=== PATIENT | female | born 1975 | race Caucasian/White ===

== ENCOUNTER → 2017-11-28 16:31 | Outpatient (CLI) | payer BC, SELFPAY ==
[2017-11-28 16:57] LABS: Basophils # 0.1 K/mm3 (0-0.2); Basophils % 0.8 % (0.1-2.0); Eosinophils # 0.2 K/mm3 (0.0-0.4); Eosinophils % 2.9 % (0.1-12.0); Hematocrit 37.9 % (37.0-47.0); Hemoglobin 12.7 g/dL (12.2-16.2); Lymphocytes # 3.2 K/mm3 (0.7-4.5); Lymphocytes % 40.2 K/mm3 (10-50); Mean Corpuscular HGB Conc 33.5 g/dL (31.8-35.4); Mean Corpuscular Hemoglobin 30.1 pg (27.0-31.2); Mean Corpuscular Volume 89.9 fl (81-99); Mean Platelet Volume 9.1 fl (7.4-10.4); Monocytes # 0.7 K/mm3 (0.1-1.0); Monocytes % 8.7 % (1.7-9.3); Neutrophils # 3.7 K/mm3 (1.8-7.8); Neutrophils % 47.3 % (37.0-80.0); Platelet Count 219 K/mm3 (142-424); Red Blood Count 4.22 M/mm3 (4.20-5.40); Red Cell Distribution Width 13.3 % (11.5-17.5); White Blood Count 7.9 K/mm3 (4.8-10.8)
[2017-11-28 19:31] LABS: Alanine Aminotransferase 32 U/L (12-78); Albumin Level 3.6 gm/dL (3.4-5.0); Albumin/Globulin Ratio 1.2 (1.1-1.8); Alkaline Phosphatase 78 U/L (46-116); Anion Gap 11.8 mEq/L (5-15); Aspartate Amino Transferase 20 U/L (15-37); Bilirubin,Total 0.2 mg/dL (0.2-1.0); Blood Urea Nitrogen 10 mg/dL (7-18); Calcium 8.5 mg/dL (8.5-10.1); Carbon Dioxide 27 mmol/L (21.0-32.0); Chloride 104 mmol/L (98-107); Creatinine,Serum 0.71 mg/dL (0.55-1.02); Estimated Glomerular Filt Rate 89 ml/min (>60); GFR (African American) 108 ML/MIN (>60); Glucose 87 mg/dL (74-106); Potassium 3.8 mmoL/L (3.5-5.1); Sodium 139 mmol/L (136-145); Total Protein,Serum 6.6 gm/dL (6.4-8.2)
== END ==
PROVIDERS: Visit Provider Internal Medicine
DX: Z51.81 Encounter for therapeutic drug level monitoring (principal)
CPT/HCPCS: 36415; 80053; 85025

== ENCOUNTER → 2017-12-25 16:23 | Outpatient (CLI) | payer BC, SELFPAY ==
--- NOTE | 2017-12-25 16:28 | MM_ITS ---
MM Dig screening mamm BI w/CAD CAD Screening COMPARISON: Digital mammograms to 2015 and 12/12/2016 INDICATION: Is no personal or family history of breast cancer TECHNIQUE: Standard CC and MLO images were obtained. R2 CAD reviewed. FINDINGS: Moderate diffuse fibroglandular densities are seen in both breast. There is a benign-appearing calcification left breast. There is no suspicious lesion and there are no suspicious microcalcifications. IMPRESSION: Stable exam with moderate breast density no suspicious lesion seen BI-RADS Category: 2 Benign Finding(s) RECOMMENDED FOLLOW-UP: 1YR - 1 YEAR FOLLOW-UP (A letter has been sent to the patient regarding results of the study.)
== END ==
PROVIDERS: Family Provider Internal Medicine Adolescent Medicine; PCP Internal Medicine Adolescent Medicine; Visit Provider Nurse Practitioner Obstetrics & Gynecology
DX: Z12.31 Encounter for screening mammogram for malignant neoplasm of breast (principal)
CPT/HCPCS: 77067

== ENCOUNTER → 2018-03-28 16:33 | Outpatient (CLI) | payer BC, SELFPAY ==
[2018-03-28 16:46] LABS: Basophils # 0.1 K/mm3 (0-0.2); Basophils % 0.6 % (0.1-2.0); Eosinophils # 0.2 K/mm3 (0.0-0.4); Eosinophils % 2.5 % (0.1-12.0); Hematocrit 40.7 % (37.0-47.0); Lymphocytes # 3.5 K/mm3 (0.7-4.5); Lymphocytes % 39.7 K/mm3 (10-50); Mean Corpuscular Hemoglobin 28.1 pg (27.0-31.2); Mean Corpuscular Volume 87.8 fl (81-99); Mean Platelet Volume 9.1 fl (7.4-10.4); Monocytes # 0.7 K/mm3 (0.1-1.0); Monocytes % 7.5 % (1.7-9.3); Neutrophils # 4.4 K/mm3 (1.8-7.8); Neutrophils % 49.6 % (37.0-80.0); Platelet Count 199 K/mm3 (142-424); Red Blood Count 4.64 M/mm3 (4.20-5.40); Red Cell Distribution Width 13.7 % (11.5-17.5); White Blood Count 8.8 K/mm3 (4.8-10.8)
[2018-03-28 17:39] LABS: Erythrocyte Sedimentation Rate 9 mm/hr (0-20)
[2018-03-28 18:13] LABS: Alanine Aminotransferase 32 U/L (12-78); Albumin Level 3.8 gm/dL (3.4-5.0); Albumin/Globulin Ratio 1.3 (1.1-1.8); Alkaline Phosphatase 81 U/L (46-116); Aspartate Amino Transferase 23 U/L (15-37); Bilirubin,Total 0.4 mg/dL (0.2-1.0); Blood Urea Nitrogen 10 mg/dL (7-18); Calcium 8.9 mg/dL (8.5-10.1); Carbon Dioxide 27 mmol/L (21.0-32.0); Chloride 103 mmol/L (98-107); Creatinine,Serum 0.65 mg/dL (0.55-1.02); Estimated Glomerular Filt Rate 99 ml/min (>60); GFR (African American) 120 ML/MIN (>60); Glucose 91 mg/dL (74-106); Sodium 138 mmol/L (136-145); Total Protein,Serum 6.8 gm/dL (6.4-8.2)
[2018-03-28 18:15] LABS: C-Reactive Protein < 0.2 mg/L (0.0-0.9)
== END ==
PROVIDERS: Visit Provider Internal Medicine
DX: D89.9 Disorder involving the immune mechanism, unspecified (principal); M06.00 Rheumatoid arthritis without rheumatoid factor, unspecified site; M06.9 Rheumatoid arthritis, unspecified; Z79.1 Long term (current) use of non-steroidal anti-inflammatories (NSAID); Z51.81 Encounter for therapeutic drug level monitoring
CPT/HCPCS: 36415; 80053; 85025; 85651; 86140

== ENCOUNTER → 2018-06-24 17:21 | Outpatient (CLI) | payer BC, SELFPAY ==
[2018-06-24 17:55] LABS: Basophils # 0.1 K/mm3 (0-0.2); Basophils % 0.8 % (0.1-2.0); Eosinophils # 0.2 K/mm3 (0.0-0.4); Eosinophils % 2.4 % (0.1-12.0); Hematocrit 36.7 % (37.0-47.0); Hemoglobin 11.5 g/dL (12.2-16.2); Lymphocytes # 2.7 K/mm3 (0.7-4.5); Lymphocytes % 34.7 K/mm3 (10-50); Mean Corpuscular HGB Conc 31.5 g/dL (31.8-35.4); Mean Corpuscular Volume 85.8 fl (81-99); Mean Platelet Volume 8.2 fl (7.4-10.4); Monocytes # 0.6 K/mm3 (0.1-1.0); Monocytes % 7.9 % (1.7-9.3); Neutrophils # 4.2 K/mm3 (1.8-7.8); Neutrophils % 54.2 % (37.0-80.0); Platelet Count 218 K/mm3 (142-424); Red Blood Count 4.27 M/mm3 (4.20-5.40); Red Cell Distribution Width 14.6 % (11.5-17.5); White Blood Count 7.7 K/mm3 (4.8-10.8)
[2018-06-24 19:13] LABS: Erythrocyte Sedimentation Rate 30 mm/hr (0-20)
[2018-06-24 19:24] LABS: Alanine Aminotransferase 42 U/L (12-78); Albumin Level 3.4 gm/dL (3.4-5.0); Alkaline Phosphatase 84 U/L (46-116); Anion Gap 12.6 mEq/L (5-15); Aspartate Amino Transferase 28 U/L (15-37); Bilirubin,Total 0.3 mg/dL (0.2-1.0); Blood Urea Nitrogen 8 mg/dL (7-18); C-Reactive Protein < 0.2 mg/L (0.0-0.9); Calcium 8.8 mg/dL (8.5-10.1); Carbon Dioxide 28 mmol/L (21.0-32.0); Chloride 104 mmol/L (98-107); Creatinine,Serum 0.62 mg/dL (0.55-1.02); Estimated Glomerular Filt Rate 104 ml/min (>60); GFR (African American) 126 ML/MIN (>60); Globulin 3.3 gm/dl (1.3-3.2); Glucose 76 mg/dL (74-106); Potassium 3.6 mmoL/L (3.5-5.1); Sodium 141 mmol/L (136-145); Total Protein,Serum 6.7 gm/dL (6.4-8.2)
== END ==
PROVIDERS: PCP Internal Medicine Adolescent Medicine; Visit Provider Internal Medicine
DX: Z51.81 Encounter for therapeutic drug level monitoring (principal); Z79.1 Long term (current) use of non-steroidal anti-inflammatories (NSAID); M06.9 Rheumatoid arthritis, unspecified; M06.00 Rheumatoid arthritis without rheumatoid factor, unspecified site; D89.9 Disorder involving the immune mechanism, unspecified
CPT/HCPCS: 36415; 80053; 85025; 85651; 86140

== ENCOUNTER → 2019-01-14 16:00 | Outpatient (CLI) | payer BC, SELFPAY ==
--- NOTE | 2019-01-14 16:04 | MM_ITS ---
MM Dig screening mamm BI w/CAD CAD Screening COMPARISON: Digital mammograms with CAD 12/25/2017 and 12/12/2016 INDICATION: There is no personal or family history of breast cancer TECHNIQUE: Standard CC and MLO images were obtained. R2 CAD reviewed. FINDINGS: Moderate heterogenic fibroglandular densities are seen in both breast. There are couple benign-appearing calcifications left breast. There is no suspicious lesion in either breast and there are no suspicious microcalcifications. IMPRESSION: Stable exam no suspicious lesion seen BI-RADS Category: 2 Benign Finding(s) RECOMMENDED FOLLOW-UP: 1YR - 1 YEAR FOLLOW-UP (A letter has been sent to the patient regarding results of the study.)
== END ==
PROVIDERS: PCP Internal Medicine Adolescent Medicine; Referring Provider Nurse Practitioner Obstetrics & Gynecology; Visit Provider Nurse Practitioner Obstetrics & Gynecology
DX: Z12.31 Encounter for screening mammogram for malignant neoplasm of breast (principal)
CPT/HCPCS: 77067

== ENCOUNTER → 2019-03-25 16:51 | Outpatient (CLI) | payer BC, SELFPAY ==
[2019-03-25 17:06] LABS: Basophils # 0.1 K/mm3 (0-0.2); Basophils % 0.5 % (0.1-2.0); Eosinophils # 0.2 K/mm3 (0.0-0.4); Eosinophils % 1.5 % (0.1-12.0); Hemoglobin 12.2 g/dL (12.2-16.2); Lymphocytes # 2.7 K/mm3 (0.7-4.5); Lymphocytes % 27.7 % (10-50); Mean Corpuscular HGB Conc 32.2 g/dL (31.8-35.4); Mean Corpuscular Hemoglobin 27.3 pg (27.0-31.2); Mean Corpuscular Volume 84.9 fl (81-99); Mean Platelet Volume 9.4 fl (7.4-10.4); Monocytes # 0.7 K/mm3 (0.1-1.0); Monocytes % 7.5 % (1.7-9.3); Neutrophils # 6.2 K/mm3 (1.8-7.8); Neutrophils % 62.7 % (37.0-80.0); Platelet Count 245 K/mm3 (142-424); Red Blood Count 4.47 M/mm3 (4.20-5.40); Red Cell Distribution Width 16.3 % (11.5-17.5); White Blood Count 9.8 K/mm3 (4.8-10.8)
[2019-03-25 17:59] LABS: Erythrocyte Sedimentation Rate 18 mm/hr (0-20)
[2019-03-25 18:39] LABS: Alanine Aminotransferase 30 U/L (12-78); Albumin Level 3.6 gm/dL (3.4-5.0); Albumin/Globulin Ratio 1.1 (1.1-1.8); Alkaline Phosphatase 84 U/L (46-116); Aspartate Amino Transferase 23 U/L (15-37); Bilirubin,Total 0.4 mg/dL (0.2-1.0); Blood Urea Nitrogen 14 mg/dL (7-18); Calcium 8.7 mg/dL (8.5-10.1); Carbon Dioxide 27 mmol/L (21.0-32.0); Chloride 104 mmol/L (98-107); Creatinine,Serum 0.67 mg/dL (0.55-1.02); Estimated Glomerular Filt Rate 95 ml/min (>60); GFR (African American) 115 ML/MIN (>60); Globulin 3.3 gm/dl (1.3-3.2); Glucose 78 mg/dL (74-106); Sodium 141 mmol/L (136-145); Total Protein,Serum 6.9 gm/dL (6.4-8.2)
[2019-03-25 18:45] LABS: C-Reactive Protein < 0.2 mg/L (0.0-0.9)
== END ==
PROVIDERS: Visit Provider Internal Medicine
DX: D89.9 Disorder involving the immune mechanism, unspecified (principal); M06.00 Rheumatoid arthritis without rheumatoid factor, unspecified site; Z51.81 Encounter for therapeutic drug level monitoring; Z79.1 Long term (current) use of non-steroidal anti-inflammatories (NSAID)
CPT/HCPCS: 36415; 80053; 85025; 85651; 86140

== ENCOUNTER → 2019-07-03 16:37 | Outpatient (CLI) | payer BC, SELFPAY ==
[2019-07-03 17:05] LABS: Basophils # 0.1 K/mm3 (0-0.2); Basophils % 0.7 % (0.1-2.0); Eosinophils # 0.2 K/mm3 (0.0-0.4); Eosinophils % 2.2 % (0.1-12.0); Hematocrit 40.5 % (37.0-47.0); Hemoglobin 12.4 g/dL (12.2-16.2); Lymphocytes % 33.1 % (10-50); Mean Corpuscular HGB Conc 30.6 g/dL (31.8-35.4); Mean Corpuscular Volume 91.5 fl (81-99); Mean Platelet Volume 8.8 fl (7.4-10.4); Monocytes # 0.7 K/mm3 (0.1-1.0); Monocytes % 7.6 % (1.7-9.3); Neutrophils # 5.1 K/mm3 (1.8-7.8); Neutrophils % 56.4 % (37.0-80.0); Platelet Count 252 K/mm3 (142-424); Red Blood Count 4.42 M/mm3 (4.20-5.40); Red Cell Distribution Width 15.5 % (11.5-17.5); White Blood Count 9.1 K/mm3 (4.8-10.8)
[2019-07-03 17:32] LABS: Erythrocyte Sedimentation Rate 26 mm/hr (0-20)
[2019-07-03 19:04] LABS: Alanine Aminotransferase 37 U/L (12-78); Albumin Level 3.6 gm/dL (3.4-5.0); Albumin/Globulin Ratio 1.1 (1.1-1.8); Alkaline Phosphatase 87 U/L (46-116); Anion Gap 15.8 mEq/L (5-15); Aspartate Amino Transferase 20 U/L (15-37); Bilirubin,Total 0.3 mg/dL (0.2-1.0); Blood Urea Nitrogen 15 mg/dL (7-18); C-Reactive Protein 0.4 mg/dL (0.0-0.9); Carbon Dioxide 27 mmol/L (21.0-32.0); Chloride 102 mmol/L (98-107); Estimated Glomerular Filt Rate 67 ml/min (>60); GFR (African American) 82 ML/MIN (>60); Globulin 3.2 gm/dl (1.3-3.2); Glucose 74 mg/dL (74-106); Potassium 3.8 mmoL/L (3.5-5.1); Sodium 141 mmol/L (136-145); Total Protein,Serum 6.8 gm/dL (6.4-8.2)
== END ==
PROVIDERS: Visit Provider Internal Medicine
DX: D89.9 Disorder involving the immune mechanism, unspecified (principal); M06.00 Rheumatoid arthritis without rheumatoid factor, unspecified site; Z51.81 Encounter for therapeutic drug level monitoring; Z79.01 Long term (current) use of anticoagulants
CPT/HCPCS: 36415; 80053; 85025; 85651; 86140

== ENCOUNTER → 2019-11-25 16:29 | Outpatient (CLI) | payer BC, SELFPAY ==
[2019-11-25 17:23] LABS: Chloride 102 mmol/L (98-107)
[2019-11-25 17:24] LABS: Potassium 4.1 mmoL/L (3.5-5.1); Sodium 137 mmol/L (136-145)
[2019-11-25 17:25] LABS: Basophils # 0.1 K/mm3 (0-0.2); Basophils % 0.4 % (0.1-2.0); Eosinophils # 0.1 K/mm3 (0.0-0.4); Eosinophils % 0.8 % (0.1-12.0); Hematocrit 42.4 % (37.0-47.0); Hemoglobin 13.9 g/dL (12.2-16.2); Lymphocytes # 2.4 K/mm3 (0.7-4.5); Lymphocytes % 23.8 % (10-50); Mean Corpuscular HGB Conc 32.9 g/dL (31.8-35.4); Mean Corpuscular Hemoglobin 30.9 pg (27.0-31.2); Mean Platelet Volume 8.5 fl (7.4-10.4); Monocytes # 0.7 K/mm3 (0.1-1.0); Neutrophils % 67.9 % (37.0-80.0); Platelet Count 270 K/mm3 (142-424); Red Blood Count 4.51 M/mm3 (4.20-5.40); Red Cell Distribution Width 13.8 % (11.5-17.5); White Blood Count 10.2 K/mm3 (4.8-10.8)
[2019-11-25 17:26] LABS: Alanine Aminotransferase 20 U/L (12-78); Alkaline Phosphatase 92 U/L (38-126); Anion Gap 9.1 mEq/L (5-15); Aspartate Amino Transferase 24 U/L (14-36); Bilirubin,Total 0.3 mg/dl (0.2-1.3); Blood Urea Nitrogen 15 mg/dl (7-17); Carbon Dioxide 30 mmol/L (22.0-30.0); Estimated Glomerular Filt Rate 90 ml/min (>60); GFR (African American) 109 ML/MIN (>60)
[2019-11-25 17:27] LABS: Albumin Level 4.2 g/dl (3.5-5.0); Albumin/Globulin Ratio 1.6 (1.1-1.8); Calcium 9.3 mg/dl (8.4-10.2); Globulin 2.6 g/dL (1.3-3.2); Glucose 73 mg/dl (74-100); Total Protein,Serum 6.8 g/dl (6.3-8.2)
[2019-11-25 17:32] LABS: C-Reactive Protein 1.4 mg/L (0-4)
[2019-11-25 18:36] LABS: Erythrocyte Sedimentation Rate 18 mm/hr (0-20)
== END ==
PROVIDERS: Visit Provider Internal Medicine
DX: D89.9 Disorder involving the immune mechanism, unspecified (principal); M06.00 Rheumatoid arthritis without rheumatoid factor, unspecified site; Z51.81 Encounter for therapeutic drug level monitoring; Z79.1 Long term (current) use of non-steroidal anti-inflammatories (NSAID)
CPT/HCPCS: 36415; 80053; 85025; 85651; 86140

== ENCOUNTER → 2020-01-23 14:47 | Outpatient (CLI) | payer BC, SELFPAY ==
--- NOTE | 2020-01-23 14:47 | US_ITS ---
PROCEDURE: US TRANSVAGINAL CLINICAL INDICATION: ovarian cyst/ pelvic pain Follow-up ovarian cyst COMPARISON: US OB TRANSVAGINAL from 12/01/2019 FINDINGS: The uterus is retroverted with nabothian cysts noted. UTERUS: 7cm x 5cmx 4cm with a combined endometrial thickness of 2.2mm Left ovary is 3.2 x 2 cm containing 2 small follicles. The right ovary is 5.5 x 2.7 cm and contains 2 cysts. The largest cyst is septated and measures 3 x 2 cm. An additional cyst is present and measures 2.3 cm. Previously the ovarian cysts each measured 2 cm. IMPRESSION: Persistent right ovarian cyst slightly larger compared to the previous exam now with a septated right ovarian cyst. No cul-de-sac fluid is evident. Dictated by: Nacho Bhatti MD 01/23/2020 16:54 Electronically signed by Nacho Bhatti MD in [place] 01/23/2020 16:54
== END ==
PROVIDERS: PCP Internal Medicine Adolescent Medicine; Visit Provider Nurse Practitioner Obstetrics & Gynecology
DX: R10.2 Pelvic and perineal pain (principal); N83.209 Unspecified ovarian cyst, unspecified side
CPT/HCPCS: 76830

== ENCOUNTER → 2020-02-27 14:27 | Outpatient (CLI) | payer BC, SELFPAY ==
[2020-02-27 14:45] LABS: Basophils # 0.1 K/mm3 (0-0.2); Basophils % 0.6 % (0.1-2.0); Eosinophils # 0.2 K/mm3 (0.0-0.4); Eosinophils % 1.7 % (0.1-12.0); Hemoglobin 13.7 g/dL (12.2-16.2); Lymphocytes # 2.5 K/mm3 (0.7-4.5); Lymphocytes % 24.6 % (10-50); Mean Corpuscular HGB Conc 36.1 g/dL (31.8-35.4); Mean Corpuscular Volume 91.5 fl (81-99); Mean Platelet Volume 8.9 fl (7.4-10.4); Monocytes # 0.6 K/mm3 (0.1-1.0); Monocytes % 5.8 % (1.7-9.3); Neutrophils # 6.8 K/mm3 (1.8-7.8); Neutrophils % 67.4 % (37.0-80.0); Platelet Count 188 K/mm3 (142-424); Red Blood Count 4.15 M/mm3 (4.20-5.40); Red Cell Distribution Width 13.9 % (11.5-17.5); White Blood Count 10.2 K/mm3 (4.8-10.8)
[2020-02-27 16:30] LABS: Erythrocyte Sedimentation Rate 44 mm/hr (0-20)
[2020-02-27 16:35] LABS: Alanine Aminotransferase 26 U/L (12-78); Alkaline Phosphatase 96 U/L (38-126); Anion Gap 11.5 mEq/L (5-15); Aspartate Amino Transferase 26 U/L (14-36); Bilirubin,Total 0.3 mg/dl (0.2-1.3); Blood Urea Nitrogen 12 mg/dl (7-17); Calcium 9.7 mg/dl (8.4-10.2); Carbon Dioxide 24 mmol/L (22.0-30.0); Chloride 104 mmol/L (98-107); Estimated Glomerular Filt Rate 77 ml/min (>60); GFR (African American) 93 ML/MIN (>60); Glucose 126 mg/dl (74-100); Potassium 3.5 mmoL/L (3.5-5.1); Sodium 136 mmol/L (136-145)
[2020-02-27 16:37] LABS: Albumin Level 4.3 g/dl (3.5-5.0); Albumin/Globulin Ratio 1.7 (1.1-1.8); Globulin 2.6 g/dL (1.3-3.2); Total Protein,Serum 6.9 g/dl (6.3-8.2)
[2020-02-27 16:41] LABS: C-Reactive Protein 8.3 mg/L (0-4)
== END ==
PROVIDERS: Visit Provider Internal Medicine
DX: D89.9 Disorder involving the immune mechanism, unspecified (principal); M06.00 Rheumatoid arthritis without rheumatoid factor, unspecified site; Z51.81 Encounter for therapeutic drug level monitoring; Z79.1 Long term (current) use of non-steroidal anti-inflammatories (NSAID)
CPT/HCPCS: 36415; 80053; 85025; 85651; 86140

== ENCOUNTER → 2020-06-22 14:05 | Outpatient (CLI) | payer BC, SELFPAY ==
[2020-06-22 14:52] LABS: Basophils # 0.1 K/mm3 (0-0.2); Basophils % 0.6 % (0.1-2.0); Eosinophils # 0.1 K/mm3 (0.0-0.4); Eosinophils % 0.8 % (0.1-12.0); Hematocrit 46.9 % (37.0-47.0); Hemoglobin 15.4 g/dL (12.2-16.2); Lymphocytes # 1.8 K/mm3 (0.7-4.5); Lymphocytes % 16.1 % (10-50); Mean Corpuscular HGB Conc 32.8 g/dL (31.8-35.4); Mean Corpuscular Hemoglobin 30.9 pg (27.0-31.2); Mean Corpuscular Volume 94.1 fl (81-99); Mean Platelet Volume 8.4 fl (7.4-10.4); Monocytes # 0.6 K/mm3 (0.1-1.0); Monocytes % 5.5 % (1.7-9.3); Neutrophils # 8.7 K/mm3 (1.8-7.8); Platelet Count 248 K/mm3 (142-424); Red Blood Count 4.98 M/mm3 (4.20-5.40); Red Cell Distribution Width 13.7 % (11.5-17.5); White Blood Count 11.3 K/mm3 (4.8-10.8)
[2020-06-22 16:32] LABS: Alanine Aminotransferase 30 U/L (12-78); Albumin Level 4.2 g/dl (3.5-5.0); Albumin/Globulin Ratio 1.4 (1.1-1.8); Alkaline Phosphatase 115 U/L (38-126); Anion Gap 11.2 mEq/L (5-15); Aspartate Amino Transferase 34 U/L (14-36); Bilirubin,Total 0.5 mg/dl (0.2-1.3); Blood Urea Nitrogen 15 mg/dl (7-17); Calcium 9.7 mg/dl (8.4-10.2); Carbon Dioxide 27 mmol/L (22.0-30.0); Chloride 105 mmol/L (98-107); Chol/HDL Ratio 6.2 (1-3.5); Cholesterol 205 mg/dl (140-200); Estimated Glomerular Filt Rate 90 ml/min (>60); GFR (African American) 109 ML/MIN (>60); Glucose 95 mg/dl (74-100); HDL Cholesterol 33 mg/dl (40-60); Potassium 4.2 mmoL/L (3.5-5.1); Sodium 139 mmol/L (136-145); Total Protein,Serum 7.2 g/dl (6.3-8.2); Triglycerides 157 mg/dl (30-150); VLDL Cholesterol 31 mg/dL (0-40)
[2020-06-22 16:43] LABS: Direct LDL Cholesterol 158.05 mg/dL (100-129)
[2020-06-22 16:49] LABS: 25-OH Vitamin D, Total 18.6 ng/mL (30-100)
[2020-06-22 17:22] LABS: Vitamin B12 335 pg/mL (239-931)
== END ==
PROVIDERS: Visit Provider Internal Medicine Adolescent Medicine
DX: E78.5 Hyperlipidemia, unspecified (principal); M06.071 Rheumatoid arthritis without rheumatoid factor, right ankle and foot
CPT/HCPCS: 36415; 80053; 80061; 82306; 82607; 85025

== ENCOUNTER → 2020-07-24 08:44 | Outpatient (CLI) | payer BC, SELFPAY ==
[2020-07-24 09:17] LABS: Basophils # 0.1 K/mm3 (0-0.2); Basophils % 0.5 % (0.1-2.0); Eosinophils # 0.1 K/mm3 (0.0-0.4); Eosinophils % 1.4 % (0.1-12.0); Hematocrit 43.5 % (37.0-47.0); Hemoglobin 14.1 g/dL (12.2-16.2); Lymphocytes # 2.7 K/mm3 (0.7-4.5); Lymphocytes % 26.6 % (10-50); Mean Corpuscular HGB Conc 32.5 g/dL (31.8-35.4); Mean Corpuscular Hemoglobin 30.8 pg (27.0-31.2); Mean Platelet Volume 8.9 fl (7.4-10.4); Monocytes # 0.7 K/mm3 (0.1-1.0); Monocytes % 7.1 % (1.7-9.3); Neutrophils # 6.4 K/mm3 (1.8-7.8); Neutrophils % 64.4 % (37.0-80.0); Platelet Count 250 K/mm3 (142-424); Red Blood Count 4.58 M/mm3 (4.20-5.40); Red Cell Distribution Width 14.2 % (11.5-17.5)
[2020-07-24 09:52] LABS: Chloride 103 mmol/L (98-107); Sodium 138 mmol/L (136-145)
[2020-07-24 09:53] LABS: Erythrocyte Sedimentation Rate 39 mm/hr (0-20); Potassium 3.6 mmoL/L (3.5-5.1)
[2020-07-24 09:55] LABS: Alanine Aminotransferase 24 U/L (12-78); Albumin/Globulin Ratio 1.5 (1.1-1.8); Alkaline Phosphatase 80 U/L (38-126); Anion Gap 8.6 mEq/L (5-15); Aspartate Amino Transferase 27 U/L (14-36); Bilirubin,Total 0.3 mg/dl (0.2-1.3); Blood Urea Nitrogen 11 mg/dl (7-17); Calcium 9.3 mg/dl (8.4-10.2); Carbon Dioxide 30 mmol/L (22.0-30.0); Estimated Glomerular Filt Rate 90 ml/min (>60); GFR (African American) 109 ML/MIN (>60); Globulin 2.6 g/dL (1.3-3.2); Glucose 103 mg/dl (74-100); Total Protein,Serum 6.6 g/dl (6.3-8.2)
[2020-07-24 10:02] LABS: C-Reactive Protein 5.7 mg/L (0-4)
== END ==
PROVIDERS: PCP Internal Medicine Adolescent Medicine; Visit Provider Internal Medicine
DX: D89.9 Disorder involving the immune mechanism, unspecified (principal); M06.00 Rheumatoid arthritis without rheumatoid factor, unspecified site; Z51.81 Encounter for therapeutic drug level monitoring; Z79.1 Long term (current) use of non-steroidal anti-inflammatories (NSAID)
CPT/HCPCS: 36415; 80053; 85025; 85651; 86140

== ENCOUNTER → 2020-09-20 12:58 | Outpatient (CLI) | payer BC, SELFPAY ==
[2020-09-20 13:26] LABS: Basophils # 0.1 K/mm3 (0-0.2); Basophils % 0.6 % (0.1-2.0); Eosinophils # 0.1 K/mm3 (0.0-0.4); Eosinophils % 1.3 % (0.1-12.0); Hematocrit 45.1 % (37.0-47.0); Hemoglobin 14.9 g/dL (12.2-16.2); Lymphocytes # 1.7 K/mm3 (0.7-4.5); Lymphocytes % 15.3 % (10-50); Mean Corpuscular HGB Conc 33.1 g/dL (31.8-35.4); Mean Corpuscular Hemoglobin 31.4 pg (27.0-31.2); Mean Corpuscular Volume 94.8 fl (81-99); Mean Platelet Volume 8.8 fl (7.4-10.4); Monocytes # 0.6 K/mm3 (0.1-1.0); Monocytes % 5.1 % (1.7-9.3); Neutrophils # 8.5 K/mm3 (1.8-7.8); Neutrophils % 77.7 % (37.0-80.0); Platelet Count 265 K/mm3 (142-424); Red Blood Count 4.76 M/mm3 (4.20-5.40); Red Cell Distribution Width 14.7 % (11.5-17.5); White Blood Count 10.9 K/mm3 (4.8-10.8)
[2020-09-20 13:48] LABS: Chloride 103 mmol/L (98-107); Sodium 136 mmol/L (136-145)
[2020-09-20 13:51] LABS: Alanine Aminotransferase 41 U/L (12-78); Albumin/Globulin Ratio 1.4 (1.1-1.8); Alkaline Phosphatase 88 U/L (38-126); Aspartate Amino Transferase 38 U/L (14-36); Bilirubin,Total 0.5 mg/dl (0.2-1.3); Blood Urea Nitrogen 10 mg/dl (7-17); Carbon Dioxide 29 mmol/L (22.0-30.0); Estimated Glomerular Filt Rate 77 ml/min (>60); GFR (African American) 93 ML/MIN (>60); Globulin 2.8 g/dL (1.3-3.2); Total Protein,Serum 6.8 g/dl (6.3-8.2)
[2020-09-20 13:52] LABS: Calcium 9.3 mg/dl (8.4-10.2); Glucose 112 mg/dl (74-100)
[2020-09-20 13:57] LABS: C-Reactive Protein 4.6 mg/L (0-4)
[2020-09-20 14:08] LABS: 25-OH Vitamin D, Total 52.6 ng/mL (30-100)
[2020-09-20 14:39] LABS: Erythrocyte Sedimentation Rate 19 mm/hr (0-20)
== END ==
PROVIDERS: Internal Medicine Adolescent Medicine; Visit Provider Nurse Practitioner Family
DX: D89.9 Disorder involving the immune mechanism, unspecified (principal); E55.9 Vitamin D deficiency, unspecified; Z51.81 Encounter for therapeutic drug level monitoring; Z79.1 Long term (current) use of non-steroidal anti-inflammatories (NSAID)
CPT/HCPCS: 36415; 80053; 82306; 85025; 85651; 86140

== ENCOUNTER → 2020-12-27 13:56 | Outpatient (CLI) | payer BC, SELFPAY ==
[2020-12-27 14:44] LABS: Basophils # 0.1 K/mm3 (0-0.2); Basophils % 0.5 % (0.1-2.0); Eosinophils # 0.2 K/mm3 (0.0-0.4); Eosinophils % 1.5 % (0.1-12.0); Hematocrit 39.4 % (37.0-47.0); Hemoglobin 13.1 g/dL (12.2-16.2); Lymphocytes # 1.6 K/mm3 (0.7-4.5); Lymphocytes % 13.4 % (10-50); Mean Corpuscular HGB Conc 33.2 g/dL (31.8-35.4); Mean Corpuscular Hemoglobin 30.8 pg (27.0-31.2); Mean Corpuscular Volume 92.7 fl (81-99); Mean Platelet Volume 8.5 fl (7.4-10.4); Monocytes # 0.7 K/mm3 (0.1-1.0); Monocytes % 5.8 % (1.7-9.3); Neutrophils # 9.4 K/mm3 (1.8-7.8); Neutrophils % 78.7 % (37.0-80.0); Platelet Count 259 K/mm3 (142-424); Red Blood Count 4.25 M/mm3 (4.20-5.40); Red Cell Distribution Width 14.6 % (11.5-17.5); White Blood Count 11.9 K/mm3 (4.8-10.8)
[2020-12-27 15:20] LABS: Alanine Aminotransferase 24 U/L (12-78); Albumin/Globulin Ratio 1.5 (1.1-1.8); Alkaline Phosphatase 83 U/L (38-126); Anion Gap 9.3 mEq/L (5-15); Aspartate Amino Transferase 26 U/L (14-36); Bilirubin,Total 0.3 mg/dl (0.2-1.3); Blood Urea Nitrogen 11 mg/dl (7-17); Calcium 9.5 mg/dl (8.4-10.2); Carbon Dioxide 26 mmol/L (22.0-30.0); Chloride 106 mmol/L (98-107); Chol/HDL Ratio 5.5 (1-3.5); Cholesterol 169 mg/dl (140-200); Estimated Glomerular Filt Rate 77 ml/min (>60); GFR (African American) 93 ML/MIN (>60); Globulin 2.7 g/dL (1.3-3.2); Glucose 109 mg/dl (74-100); HDL Cholesterol 31 mg/dl (40-60); Potassium 4.3 mmoL/L (3.5-5.1); Sodium 137 mmol/L (136-145); Total Protein,Serum 6.7 g/dl (6.3-8.2); Triglycerides 191 mg/dl (30-150); VLDL Cholesterol 38 mg/dL (0-40)
[2020-12-27 15:32] LABS: Direct LDL Cholesterol 114.12 mg/dL (100-129)
[2021-01-01 18:14] LABS: QuantiFERON-TB Gold Plus Negative (Negative)
== END ==
PROVIDERS: Visit Provider Internal Medicine
DX: M06.9 Rheumatoid arthritis, unspecified (principal); D89.9 Disorder involving the immune mechanism, unspecified; R53.83 Other fatigue; Z13.220 Encounter for screening for lipoid disorders; Z51.81 Encounter for therapeutic drug level monitoring
CPT/HCPCS: 36415; 80053; 80061; 85025; 86140; 86480

== ENCOUNTER → 2020-12-28 13:26 | Outpatient (CLI) | payer BC, SELFPAY ==
[2020-12-28 14:47] LABS: Erythrocyte Sedimentation Rate 26 mm/hr (0-20)
== END ==
PROVIDERS: Visit Provider Internal Medicine
DX: D89.9 Disorder involving the immune mechanism, unspecified (principal); M06.9 Rheumatoid arthritis, unspecified; R53.83 Other fatigue; Z13.220 Encounter for screening for lipoid disorders; Z51.81 Encounter for therapeutic drug level monitoring; Z79.1 Long term (current) use of non-steroidal anti-inflammatories (NSAID)
CPT/HCPCS: 85651

== ENCOUNTER → 2021-03-23 08:10 | Outpatient (CLI) | payer BC, SELFPAY ==
[2021-03-23 09:17] LABS: Basophils # 0.1 K/mm3 (0-0.2); Basophils % 0.5 % (0.1-2.0); Eosinophils # 0.1 K/mm3 (0.0-0.4); Eosinophils % 0.9 % (0.1-12.0); Hematocrit 37.9 % (37.0-47.0); Hemoglobin 12.9 g/dL (12.2-16.2); Lymphocytes % 16.3 % (10-50); Mean Corpuscular Hemoglobin 29.7 pg (27.0-31.2); Mean Corpuscular Volume 87.5 fl (81-99); Mean Platelet Volume 8.8 fl (7.4-10.4); Monocytes # 0.8 K/mm3 (0.1-1.0); Monocytes % 6.4 % (1.7-9.3); Neutrophils # 9.2 K/mm3 (1.8-7.8); Neutrophils % 75.9 % (37.0-80.0); Platelet Count 278 K/mm3 (142-424); Red Blood Count 4.33 M/mm3 (4.20-5.40); Red Cell Distribution Width 14.9 % (11.5-17.5); White Blood Count 12.1 K/mm3 (4.8-10.8)
[2021-03-23 09:30] LABS: Chloride 103 mmol/L (98-107); Potassium 3.6 mmoL/L (3.5-5.1); Sodium 137 mmol/L (136-145)
[2021-03-23 09:33] LABS: Alanine Aminotransferase 50 U/L (12-78); Albumin Level 4.2 g/dl (3.5-5.0); Albumin/Globulin Ratio 1.4 (1.1-1.8); Alkaline Phosphatase 100 U/L (38-126); Aspartate Amino Transferase 49 U/L (14-36); Bilirubin,Total 0.3 mg/dl (0.2-1.3); Blood Urea Nitrogen 17 mg/dl (7-17); Calcium 9.3 mg/dl (8.4-10.2); Carbon Dioxide 27 mmol/L (22.0-30.0); Estimated Glomerular Filt Rate 67 ml/min (>60); GFR (African American) 81 ML/MIN (>60); Globulin 3.1 g/dL (1.3-3.2); Glucose 139 mg/dl (74-100); Total Protein,Serum 7.3 g/dl (6.3-8.2)
[2021-03-23 10:22] LABS: Erythrocyte Sedimentation Rate 24 mm/hr (0-20)
[2021-03-23 13:36] LABS: C-Reactive Protein 7.2 mg/L (0-4)
[2021-03-24 10:26] LABS: Hep A Ab, IgM Negative (Negative); Hepatitis B Core Antibody IgM Negative (Negative); Hepatitis B Surface Antigen Negative (Negative); Hepatitis C Antibody <0.1 s/co ratio (0.0-0.9)
== END ==
PROVIDERS: Visit Provider Internal Medicine
DX: Z51.81 Encounter for therapeutic drug level monitoring (principal); E78.00 Pure hypercholesterolemia, unspecified; M06.00 Rheumatoid arthritis without rheumatoid factor, unspecified site; R53.83 Other fatigue
CPT/HCPCS: 36415; 80053; 80074; 85025; 85651; 86140

== ENCOUNTER → 2021-05-23 07:59 | Outpatient (CLI) | payer BC, SELFPAY ==
[2021-05-23 08:23] LABS: Basophils # 0.1 K/mm3 (0-0.2); Basophils % 0.4 % (0.1-2.0); Eosinophils # 0.1 K/mm3 (0.0-0.4); Eosinophils % 0.7 % (0.1-12.0); Hematocrit 39.7 % (37.0-47.0); Hemoglobin 12.7 g/dL (12.2-16.2); Lymphocytes # 1.7 K/mm3 (0.7-4.5); Lymphocytes % 14.4 % (10-50); Mean Corpuscular HGB Conc 31.9 g/dL (31.8-35.4); Mean Corpuscular Hemoglobin 29.8 pg (27.0-31.2); Mean Corpuscular Volume 93.4 fl (81-99); Mean Platelet Volume 9.6 fl (7.4-10.4); Monocytes # 0.7 K/mm3 (0.1-1.0); Monocytes % 6.1 % (1.7-9.3); Neutrophils # 9.5 K/mm3 (1.8-7.8); Neutrophils % 78.4 % (37.0-80.0); Platelet Count 243 K/mm3 (142-424); Red Blood Count 4.25 M/mm3 (4.20-5.40); Red Cell Distribution Width 16.8 % (11.5-17.5); White Blood Count 12.1 K/mm3 (4.8-10.8)
[2021-05-23 08:48] LABS: Erythrocyte Sedimentation Rate 27 mm/hr (0-20)
[2021-05-23 08:54] LABS: Alanine Aminotransferase 38 U/L (12-78); Albumin Level 3.8 g/dl (3.5-5.0); Albumin/Globulin Ratio 1.4 (1.1-1.8); Alkaline Phosphatase 81 U/L (38-126); Anion Gap 16.1 mEq/L (5-15); Aspartate Amino Transferase 38 U/L (14-36); Bilirubin,Total 0.2 mg/dl (0.2-1.3); Blood Urea Nitrogen 14 mg/dl (7-17); Calcium 10.1 mg/dl (8.4-10.2); Carbon Dioxide 23 mmol/L (22.0-30.0); Chloride 100 mmol/L (98-107); Estimated Glomerular Filt Rate 89 ml/min (>60); GFR (African American) 108 ML/MIN (>60); Globulin 2.8 g/dL (1.3-3.2); Glucose 247 mg/dl (74-100); Potassium 4.1 mmoL/L (3.5-5.1); Sodium 135 mmol/L (136-145); Total Protein,Serum 6.6 g/dl (6.3-8.2)
[2021-05-23 09:00] LABS: C-Reactive Protein 6.7 mg/L (0-4)
== END ==
PROVIDERS: Visit Provider Nurse Practitioner Women's Health
DX: D89.9 Disorder involving the immune mechanism, unspecified (principal); M06.00 Rheumatoid arthritis without rheumatoid factor, unspecified site; Z51.81 Encounter for therapeutic drug level monitoring; Z79.1 Long term (current) use of non-steroidal anti-inflammatories (NSAID)
CPT/HCPCS: 36415; 80053; 85025; 85651; 86140

== ENCOUNTER → 2021-08-29 09:33 | Outpatient (CLI) | payer BC, SELFPAY ==
[2021-08-29 10:31] LABS: Basophils # 0.2 K/mm3 (0-0.2); Eosinophils # 0.4 K/mm3 (0.0-0.4); Eosinophils % 1.8 % (0.1-12.0); Hemoglobin 12.3 g/dL (12.2-16.2); Lymphocytes # 2.2 K/mm3 (0.7-4.5); Lymphocytes % 10.9 % (10-50); Mean Corpuscular HGB Conc 32.3 g/dL (31.8-35.4); Mean Corpuscular Hemoglobin 29.8 pg (27.0-31.2); Mean Corpuscular Volume 92.3 fl (81-99); Mean Platelet Volume 8.7 fl (7.4-10.4); Monocytes # 0.8 K/mm3 (0.1-1.0); Monocytes % 4.1 % (1.7-9.3); Neutrophils # 16.5 K/mm3 (1.8-7.8); Neutrophils % 82.3 % (37.0-80.0); Platelet Count 480 K/mm3 (142-424); Red Blood Count 4.12 M/mm3 (4.20-5.40); White Blood Count 20.1 K/mm3 (4.8-10.8)
[2021-08-29 10:46] LABS: MANUAL DIFFERENTIAL MANUAL DIFFERENTIAL (MANUAL DIFF)
[2021-08-29 10:47] LABS: Chloride 91 mmol/L (98-107); Sodium 130 mmol/L (136-145)
[2021-08-29 10:48] LABS: Potassium 3.2 mmoL/L (3.5-5.1)
[2021-08-29 10:50] LABS: Alanine Aminotransferase 34 U/L (12-78); Albumin Level 3.9 g/dl (3.5-5.0); Alkaline Phosphatase 114 U/L (38-126); Anion Gap 12.2 mEq/L (5-15); Aspartate Amino Transferase 26 U/L (14-36); Bilirubin,Total 0.1 mg/dl (0.2-1.3); Blood Urea Nitrogen 16 mg/dl (7-17); Carbon Dioxide 30 mmol/L (22.0-30.0); Cholesterol 170 mg/dl (140-200); Estimated Glomerular Filt Rate 89 ml/min (>60); GFR (African American) 108 ML/MIN (>60); Total Protein,Serum 6.6 g/dl (6.3-8.2); Triglycerides 165 mg/dl (30-150); VLDL Cholesterol 33 mg/dL (0-40)
[2021-08-29 10:51] LABS: Calcium 9.7 mg/dl (8.4-10.2); Chol/HDL Ratio 5.3 (1-3.5); Glucose 332 mg/dl (74-100); HDL Cholesterol 32 mg/dl (40-60)
[2021-08-29 10:57] LABS: C-Reactive Protein 68.2 mg/L (0-4)
[2021-08-29 11:02] LABS: Direct LDL Cholesterol 110.87 mg/dL (100-129)
[2021-08-29 11:21] LABS: Thyroid Stimulating Hormone 1.47 uIU/mL (0.465-4.68)
[2021-08-29 13:41] LABS: Eosinophils % 2 % (0-3); Lymphocytes % 16 % (10-50); Monocytes % 1 % (2-9); Neutrophils % 81 % (42-76); Nucleated Red Blood Cells 1; Total Cells Counted 100
[2021-08-29 13:42] LABS: Anisocytosis 1+; Hypochromasia 1+; Macrocytosis 1+; Platelet Estimate Normal
[2021-08-29 14:37] LABS: Erythrocyte Sedimentation Rate 58 mm/hr (0-20)
[2021-08-29 19:30] LABS: Albumin/Globulin Ratio 1.4 (1.1-1.8); Globulin 2.7 g/dL (1.3-3.2)
[2021-08-30 08:44] LABS: FSH 37.9 mIU/mL (.); LH 23.4 mIU/mL (.)
== END ==
PROVIDERS: Internal Medicine; Visit Provider Internal Medicine Adolescent Medicine
DX: E78.5 Hyperlipidemia, unspecified (principal); R23.2 Flushing; M06.09 Rheumatoid arthritis without rheumatoid factor, multiple sites; Z51.81 Encounter for therapeutic drug level monitoring
CPT/HCPCS: 36415; 80053; 80061; 83001; 83002; 84443; 85007; 85025; 85651; 86140

== ENCOUNTER → 2021-09-02 11:26 | Outpatient (CLI) | payer BC, SELFPAY | PROVIDERS: PCP Internal Medicine Adolescent Medicine; Visit Provider Nurse Practitioner | DX: Z20.822 Contact with and (suspected) exposure to COVID-19 (principal) | CPT/HCPCS: C9803; U0003; U0005 ==

== ENCOUNTER → 2021-10-20 08:31 | Outpatient (CLI) | payer BC, SELFPAY ==
[2021-10-20 09:28] LABS: Alanine Aminotransferase 33 U/L (12-78); Albumin Level 4.4 g/dl (3.5-5.0); Albumin/Globulin Ratio 1.8 (1.1-1.8); Alkaline Phosphatase 92 U/L (38-126); Anion Gap 11.9 mEq/L (5-15); Aspartate Amino Transferase 29 U/L (14-36); Bilirubin,Total 0.3 mg/dl (0.2-1.3); Blood Urea Nitrogen 19 mg/dl (7-17); Calcium 10.1 mg/dl (8.4-10.2); Carbon Dioxide 25 mmol/L (22.0-30.0); Chloride 102 mmol/L (98-107); Estimated Glomerular Filt Rate 77 ml/min (>60); GFR (African American) 93 ML/MIN (>60); Globulin 2.5 g/dL (1.3-3.2); Glucose 153 mg/dl (74-100); Potassium 3.9 mmoL/L (3.5-5.1); Sodium 135 mmol/L (136-145); Total Protein,Serum 6.9 g/dl (6.3-8.2)
[2021-10-20 10:12] LABS: Hemoglobin A1C 6.9 % (4.0-6.0)
== END ==
PROVIDERS: PCP Internal Medicine Adolescent Medicine; Visit Provider Internal Medicine Adolescent Medicine
DX: E11.9 Type 2 diabetes mellitus without complications (principal)
CPT/HCPCS: 36415; 80053; 83036

== ENCOUNTER → 2021-10-29 09:05 | Outpatient (CLI) | payer BC, SELFPAY | PROVIDERS: PCP Internal Medicine Adolescent Medicine; Visit Provider Surgery | DX: Z01.812 Encounter for preprocedural laboratory examination (principal); Z11.52 Encounter for screening for COVID-19 | CPT/HCPCS: C9803; U0003; U0005 ==

== ENCOUNTER 2021-11-01 07:37 | Day surgery (SDC) | payer BC, SELFPAY ==
[2021-10-27 12:12] VITALS: BMI 28.8
[2021-11-01 07:54] VITALS: BP 145/78; PULSE 88; RESP 18; TEMP 36.8; O2SAT 97
--- NOTE | 2021-11-01 08:11 | P.PN_ITS ---
[facility] Anesthesia Checklist - Patient Identification Patient Identification: Arm Band - Structural Data Admitted From: Home Planned Operative Procedure/s: Colonoscopy Consent for Planned Operative Procedure(s) Verified: Yes - NPO Status Verified Time NPO: 05:30 (prep) - Airway Assessment C-Spine Mobility Assessed: Yes TMJ Mobility Assessed: Yes Dentition: Good Dentition - Neurological Assessment Level of Consciousness: Awake Hx Seizures: No Numbness or tingling in extremities: No - Anesthesia Plan Anesthesia Risk discussed: Yes Anesthesia Plan: Verified ASA Class: III Anesthesia Type: MAC [facility] History I have reviewed the patient's past medical history: Yes Medical History: Reports:: Diabetes Mellitus Type 2, Hyperlipidemia, Hypertension, Migraine Denies:: Anxiety, Cancer, Depression, Diabetes Mellitus Type 1, Internal Pacemaker, MRSA, Seizures *Have you ever received a pneumonia vaccine?: No *Have you received a flu vaccine this season?: No Other Medical History: Reports: Arthritis Anesthesia experience/problems:: None Laterality Cases: Bilateral: Arthroscopy Knee, Arthroscopy Shoulder, Other Other Surgeries: Yes: Cholecystectomy, . No: Pacemaker Amputation: No Fractures: No - *Social History Last grade of school completed: High school graduate Smoking Status: Current every day smoker Tobacco Type: cigarettes # Packs/Day (cigarettes): 1 Alcohol Intake: never Substance Use Type: denies use *Occupational Status:: employed Housing: house Household Members: spouse *Travel in the last 8 weeks: None - Psychiatric History Pschychiatric History:: Denies:: Anxiety, Depression Family Hx:: Cancer, Diabetes
[2021-11-01 08:25] LABS: HCG Qualitative, Serum Negative (Negative)
[2021-11-01 08:32] VITALS: O2SAT 97
--- NOTE | 2021-11-01 09:04 | HMH.SCOPE ---
- Procedure: Date: 11/01/21 Patient Date of :: 1975 Procedure Performed:: Colonoscopy with polypectomy by means other than snare Indications:: Screening Positive Cologuard Performing Provider:: Josh Rollins MD Referring Provider:: . Sedation:: Monitored anesthesia care Procedure:: After informed consent was obtained the patient was taken to the endoscopy suite. Sedation ensued after the patient was transferred to the left lateral decubitus position. Pulse, blood pressure, and oxygen saturation were monitored throughout the procedure. Digital rectal exam revealed no significant abnormality. The colonoscope was placed in position. The entire colon was evaluated. The colonoscope was carefully removed and the patient was transferred to recovery in stable condition. Please see findings and specimens below for detail. Findings:: Bowel preparation moderate to fair Fairly significant tortuosity and spasticity (particularly sigmoid colon) Hemorrhoidal cushions Right colon polyp Specimens:: Right colon polyp Recommendations:: Consider barium enema secondary to positive Cologuard and visualization limitations on colonoscopy. Timing of repeat colonoscopy is pending pathology but will likely be between 2-3 years (if barium enema obtained and found to be normal) secondary to limitations in visualization. Complications:: No immediate Estimated blood obtained (mL): 1
[2021-11-01 09:05] VITALS: BP 152/70; PULSE 71; RESP 16; TEMP 36.3; O2SAT 94
[2021-11-01 09:15] VITALS: BP 129/76; PULSE 65; RESP 16; O2SAT 98
[2021-11-01 09:25] VITALS: BP 115/70; PULSE 67; RESP 16; O2SAT 99
[2021-11-01 09:35] VITALS: BP 121/68; PULSE 65; RESP 16; O2SAT 100
[2022-06-22 10:57] LABS: POC Glucose,Bedside 96 (70-110)
== END 2021-11-01 09:35 | disposition home or self-care (01) ==
LOC: OUTP 07:38
PROVIDERS: PCP Internal Medicine Adolescent Medicine; Visit Provider Surgery
PROC: 0DJD8ZZ Inspection of Lower Intestinal Tract, Via Natural or Artificial Opening Endoscopic (ICD-10-PCS; CPT 45380; principal; 2021-11-01 08:30)
DX: K58.9 Irritable bowel syndrome, unspecified (principal); Z83.3 Family history of diabetes mellitus; Z82.3 Family history of stroke; I10 Essential (primary) hypertension; E11.9 Type 2 diabetes mellitus without complications; Z82.49 Family history of ischemic heart disease and other diseases of the circulatory system; Z80.9 Family history of malignant neoplasm, unspecified; K63.5 Polyp of colon; K64.9 Unspecified hemorrhoids; K56.2 Volvulus; R19.5 Other fecal abnormalities
CPT/HCPCS: 45380; 82962; 84703

== ENCOUNTER → 2021-12-14 08:44 | Outpatient (CLI) | payer BC, SELFPAY ==
[2021-12-14 09:07] LABS: Basophils # 0.1 K/mm3 (0-0.2); Basophils % 0.9 % (0.1-2.0); Eosinophils # 0.1 K/mm3 (0.0-0.4); Eosinophils % 1.3 % (0.1-12.0); Hematocrit 35.5 % (37.0-47.0); Hemoglobin 11.2 g/dL (12.2-16.2); Lymphocytes # 1.8 K/mm3 (0.7-4.5); Lymphocytes % 19.2 % (10-50); Mean Corpuscular HGB Conc 31.6 g/dL (31.8-35.4); Mean Corpuscular Hemoglobin 25.1 pg (27.0-31.2); Mean Corpuscular Volume 79.4 fl (81-99); Mean Platelet Volume 9.2 fl (7.4-10.4); Monocytes # 0.5 K/mm3 (0.1-1.0); Monocytes % 4.8 % (1.7-9.3); Neutrophils # 6.9 K/mm3 (1.8-7.8); Neutrophils % 73.8 % (37.0-80.0); Platelet Count 278 K/mm3 (142-424); Red Blood Count 4.47 M/mm3 (4.20-5.40); Red Cell Distribution Width 18.1 % (11.5-17.5); White Blood Count 9.4 K/mm3 (4.8-10.8)
[2021-12-14 09:33] LABS: Erythrocyte Sedimentation Rate 27 mm/hr (0-20)
[2021-12-14 10:11] LABS: Alanine Aminotransferase 30 U/L (12-78); Albumin Level 3.8 g/dl (3.5-5.0); Albumin/Globulin Ratio 1.6 (1.1-1.8); Alkaline Phosphatase 98 U/L (38-126); Anion Gap 9.8 mEq/L (5-15); Aspartate Amino Transferase 26 U/L (14-36); Bilirubin,Total 0.2 mg/dl (0.2-1.3); Blood Urea Nitrogen 19 mg/dl (7-17); Calcium 9.3 mg/dl (8.4-10.2); Carbon Dioxide 24 mmol/L (22.0-30.0); Chloride 107 mmol/L (98-107); Estimated Glomerular Filt Rate 89 ml/min (>60); GFR (African American) 108 ML/MIN (>60); Globulin 2.4 g/dL (1.3-3.2); Glucose 148 mg/dl (74-100); Potassium 3.8 mmoL/L (3.5-5.1); Sodium 137 mmol/L (136-145); Total Protein,Serum 6.2 g/dl (6.3-8.2)
[2021-12-14 10:17] LABS: C-Reactive Protein 12.1 mg/L (0-4)
== END ==
PROVIDERS: Visit Provider Internal Medicine
DX: D89.9 Disorder involving the immune mechanism, unspecified (principal); M06.00 Rheumatoid arthritis without rheumatoid factor, unspecified site; Z51.81 Encounter for therapeutic drug level monitoring; Z79.1 Long term (current) use of non-steroidal anti-inflammatories (NSAID); Z79.52 Long term (current) use of systemic steroids
CPT/HCPCS: 36415; 80053; 85025; 85651; 86140

== ENCOUNTER → 2021-12-26 07:52 | Outpatient (CLI) | payer BC, SELFPAY ==
--- NOTE | 2021-12-26 07:56 | MR_ITS ---
FINAL REPORT CLINICAL HISTORY: LEFT MEDIAL KNEE PAIN. prior hx 2 knee surgeries. x1wk ago twisted knee and has medial sided knee pain and swelling. pt had a hard time staying still. sent over best images. FINDINGS: Multiplanar MR imaging of the right knee was performed without contrast. Motion on many of the images decreases exam sensitivity. There is degenerative signal in the medial meniscus. No tear is identified. The lateral meniscus is intact. The anterior and posterior cruciate ligaments are intact. The medial collateral ligament and lateral ligamentous complex are intact. The patellar and quadriceps tendons are intact. There is no evidence of fracture. There are mild degenerative changes. There is moderate patellofemoral chondromalacia. No significant joint effusion is seen. The musculature is intact. There is a 1.5 cm lobular cystic mass in the posteromedial knee that may represent a ganglion cyst. IMPRESSION: Medial meniscal degeneration without tear. Mild degenerative change with moderate patellofemoral chondromalacia. 1.5 cm cystic mass in the posteromedial knee may represent a ganglion cyst. Reviewed, Interpreted and Dictated by Neal Villagomez III, MD Transcribed by Ryan Yoo Authenticated by Neal Villagomez III, MD on 12/26/2021 11:45:48 AM [facility]
== END ==
PROVIDERS: PCP Internal Medicine Adolescent Medicine; Visit Provider Internal Medicine Adolescent Medicine
DX: M25.562 Pain in left knee (principal)
CPT/HCPCS: 73721

== ENCOUNTER → 2021-12-28 07:44 | Outpatient (CLI) | payer BC, SELFPAY ==
--- NOTE | 2021-12-28 07:45 | MM_ITS ---
PROCEDURE INFORMATION: Exam: MG Bilateral Screening 3D Mammography Exam date and time: 12/28/2021 7:59 AM Age: 46 years old Clinical indication: Screening. No family history of breast cancer. TECHNIQUE: Imaging protocol: Bilateral Screening tomosynthesis and 2D mammography including computer-aided detection (CAD) when performed. COMPARISON: 1. MG SCBI MM Dig screening mamm BI w/CAD 01/14/2019 4:08 PM 2. MG SCBI MM Dig screening mamm BI w/CAD 12/25/2017 4:35 PM 3. MG DMSB DIG MAMM-SCREEN JAME W/CAD 12/12/2016 10:06 AM 4. MG DMDXUWAR DIG MAMM-DX UNI RT W ADD VIEW 11/08/2015 3:11 PM FINDINGS: MAMMOGRAPHY: Breast composition: The breast tissue is heterogeneously dense, which may obscure small masses. Mass: None. Architectural distortion: None. Calcifications: No suspicious calcifications. Asymmetric density: None. Skin thickening: None. Axillary adenopathy: None. IMPRESSION: No mammographic evidence of malignancy. Annual screening is recommended unless otherwise clinically indicated. ASSESSMENT: BI-RADS Category 1: Negative
== END ==
PROVIDERS: PCP Internal Medicine Adolescent Medicine; Visit Provider Nurse Practitioner Obstetrics & Gynecology
DX: Z12.31 Encounter for screening mammogram for malignant neoplasm of breast (principal)
CPT/HCPCS: 77063; 77067

== ENCOUNTER 2022-01-20 11:46 | Outpatient (RCR) | payer BC, SELFPAY | END 2022-01-20 12:50 | disposition home or self-care (01) | LOC: PT 11:46 | PROVIDERS: Visit Provider Orthopaedic Surgery | DX: M25.562 Pain in left knee (principal) | CPT/HCPCS: 97760 ==

== ENCOUNTER → 2022-02-03 08:02 | Outpatient (CLI) | payer BC, SELFPAY ==
--- NOTE | 2022-02-03 08:03 | FL_ITS ---
FINAL REPORT CLINICAL HISTORY: 3.23 fluoro time post colonoscopy , poor clean out for colonoscopy. FINDINGS: BARIUM ENEMA HISTORY: Incomplete colonoscopy. PROCEDURE: Single-contrast barium was introduced by gravity drip. Spot and overhead films were obtained. FINDINGS: Landscape Drafter film is unremarkable. No constricting or obstructing lesions are identified to the level of the cecum. An area in the descending colon which appeared narrowed in the early study completely distended as the colon was filled. IMPRESSION: No constricting or obstructing lesions to the level of the cecum. FLUOROSCOPY TIME: 3 minutes 23 seconds Reviewed, Interpreted and Dictated by Neal Villagomez III, MD Transcribed by ROSALIE Lopez Authenticated by Neal Villagomez III, MD on 02/03/2022 11:08:26 AM [facility]
== END ==
PROVIDERS: PCP Internal Medicine Adolescent Medicine; Visit Provider Surgery
DX: D12.6 Benign neoplasm of colon, unspecified (principal)
CPT/HCPCS: 74270

== ENCOUNTER 2022-03-03 08:00 | Outpatient (RCR) | payer BC, SELFPAY ==
--- NOTE | 2022-01-27 08:18 | HMH.PTOPEV ---
PT Outpatient Evaluation Rehab PT Outpatient Evaluation Start: 01/27/22 08:03 Freq: Status: Active Protocol: Document 01/27/22 08:07 LIONEL (Rec: 01/27/22 08:18 LIONEL [id number]) Electronically Signed By Zhou Rodriguez, PT 01/27/22 08:07 Outpatient Therapy Subjective History Subjective History Pt presents w/chronic Left knee pain, exacerbation w/ twisting and buckling episode ~1 month ago. Pt reports medial aspect left knee pain, h/o recurrent instability. 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 Pt reports improved pain and instability w/left knee brace. PMH:DM II Chief Complaint Pain,Stiff,Gives out/Unstable Symptom Type Ache,Sharp,Dull Symptoms Relieved By Rest/Positioning,Brace/Support Symptoms Aggravated By Standing,Physical Activity Prior Functional Limitations Standing,Stairs Current Functional Limitations Standing,Stairs Symptom Description Constant but Variable Level of pain today (0-10) 1 Pain scale - at its best (0-10) 1 Pain scale - at its worst (0-10) 8 Hip/Knee Eval Gait Observation General Gait Pattern Observation Antalgic Gait Palpation Tenderness left Knee Palpation Finding Tenderness Knee Palpation Overall Comment 2/4 medial jt line MMT Hip Flexion Strength Grade 4 Good Hip Abduction Strength Grade 4- Good- Hip Adduction Strength Grade 4- Good- Hip Extension Strength Grade 4 Good Hip External Rotation Strength Grade 4 Good Hip Internal Rotation Strength Grade 4 Good Knee Extension Strength Grade 5 Normal Knee Flexion Strength Grade 5 Normal ROM Knee Flexion Active Range of Motion ( 0-140 degrees) Effusion joint effusion knee exam standard left Mid - Patellar Circumerential Measure ( 36 cm) Special Tests Knee Valgus Stress Test Negative Left Knee Varus Stress Test Negative Left Knee Sammi Test Negative Left Patella Apprehension Test Negative Left Patellar Grind Test Negative Left Outpatient Therapy Assessment Impairments Problems/Impairmments Palpation Tenderness,Impaired Strength,Impaired Gait Pattern ,Impaired Walking,Impaired Standing,Impaired Stair Climbing,Subjective C/O Pain, Impaired Self Care/Self Management Prognosi
--- NOTE | 2022-02-24 08:25 | HMH.RHREAS ---
Rehab Reassessment Rehab OP Re-assessment Start: 02/24/22 08:07 Freq: Status: Active Protocol: Document 02/24/22 08:07 LIONEL (Rec: 02/24/22 08:24 LIONEL [id number]) Electronically Signed By Zhou Rodriguez, PT 02/24/22 08:07 Rehab Re-assessment Subjective Subjective Pt reports 0-1/10 left knee pain on VAS, 'it really only hurts now if it rains. I'm up on it for 10hours at work without the brace.' Pt reports feeling 98% better overall since I eval Objective Objective Notes AROM: LEFT KNEE FLX 0-142 MMT: L HIP ER 4+/5, L HIP IR 5 /5, L HIP ABD 4+/5, L HIP ADD 5/5, L HIP EXT 4+/5, L HIP FLX 4+-5/5, L KNEE EXT 5/5, L KNEE FLX 4+/5 TTP: LEFT KNEE MEDIAL JT LINE 0-1/4 GAIT: WFL ON LEVEL TERRAIN Assessment Progress Assessment Progressing as Expected Assessment Notes SIGNIFICANT IMPROVEMENTS IN STRENGTH, TTP, GAIT Patient goals met STG'S 03/30 LTG'S 04/01 Goals Not Met LTG'S 11/02 Plan Plan Pt to continue w/skilled P.T. to make further improvements in left knee strength, TTP, and gait to allow for optimal function Frequency of Therapy 1-2x/wk Duration of therapy 1-3wks Time and Billing Re-Eval Time 12 Re-Eval Billing Units 1 PHYSICIAN CERTIFICATION: I certify the specified therapy services for Nancy Kelly are required, authorized, and reviewed every 30 days.
== END 2022-03-03 08:05 | disposition home or self-care (01) ==
LOC: PT 08:00
PROVIDERS: PCP Internal Medicine Adolescent Medicine; Visit Provider Orthopaedic Surgery
DX: M25.562 Pain in left knee (principal)
CPT/HCPCS: 97010; 97014; 97033; 97035; 97110; 97163; 97164; G0283

== ENCOUNTER → 2022-04-10 08:00 | Outpatient (CLI) | payer BC, SELFPAY ==
[2022-04-10 08:38] LABS: Basophils # 0.1 K/mm3 (0-0.2); Basophils % 0.7 % (0.1-2.0); Eosinophils # 0.1 K/mm3 (0.0-0.4); Eosinophils % 1.2 % (0.1-12.0); Hematocrit 46.1 % (37.0-47.0); Hemoglobin 15.4 g/dL (12.2-16.2); Lymphocytes % 17.1 % (10-50); Mean Corpuscular HGB Conc 33.4 g/dL (31.8-35.4); Mean Corpuscular Hemoglobin 27.5 pg (27.0-31.2); Mean Corpuscular Volume 82.3 fl (81-99); Mean Platelet Volume 8.3 fl (7.4-10.4); Monocytes # 0.7 K/mm3 (0.1-1.0); Monocytes % 6.3 % (1.7-9.3); Neutrophils # 8.6 K/mm3 (1.8-7.8); Neutrophils % 74.7 % (37.0-80.0); Platelet Count 277 K/mm3 (142-424); Red Cell Distribution Width 16.7 % (11.5-17.5); White Blood Count 11.6 K/mm3 (4.8-10.8)
[2022-04-10 09:07] LABS: Chol/HDL Ratio 4.3 (1-3.5); Cholesterol 180 mg/dl (140-200); HDL Cholesterol 42 mg/dl (40-60); Triglycerides 180 mg/dl (30-150); VLDL Cholesterol 36 mg/dL (0-40)
[2022-04-10 09:07] LABS: Alanine Aminotransferase 22 U/L (12-78); Albumin Level 4.4 g/dl (3.5-5.0); Albumin/Globulin Ratio 1.6 (1.1-1.8); Alkaline Phosphatase 90 U/L (38-126); Anion Gap 12.1 mEq/L (5-15); Aspartate Amino Transferase 31 U/L (14-36); Blood Urea Nitrogen 14 mg/dl (7-17); Calcium 9.8 mg/dl (8.4-10.2); Carbon Dioxide 28 mmol/L (22.0-30.0); Chloride 100 mmol/L (98-107); Estimated Glomerular Filt Rate 77 ml/min (>60); GFR (African American) 93 ML/MIN (>60); Globulin 2.7 g/dL (1.3-3.2); Glucose 111 mg/dl (74-100); Potassium 4.1 mmoL/L (3.5-5.1); Sodium 136 mmol/L (136-145); Total Protein,Serum 7.1 g/dl (6.3-8.2)
[2022-04-10 09:08] LABS: Bilirubin,Total < 0.1 mg/dl (0.2-1.3); Erythrocyte Sedimentation Rate 5 mm/hr (0-20)
[2022-04-10 09:13] LABS: C-Reactive Protein 5.8 mg/L (0-4)
[2022-04-10 09:17] LABS: Direct LDL Cholesterol 104.63 mg/dL (100-129)
[2022-04-14 23:00] LABS: Hep A Ab, IgM NEGATIVE; Hepatitis B Core Antibody IgM NEGATIVE; Hepatitis B Surface Antigen NEGATIVE; Hepatitis C Antibody 0.2
== END ==
PROVIDERS: PCP Internal Medicine Adolescent Medicine; Visit Provider Internal Medicine
DX: E78.5 Hyperlipidemia, unspecified (principal); D89.9 Disorder involving the immune mechanism, unspecified; M06.00 Rheumatoid arthritis without rheumatoid factor, unspecified site; R53.83 Other fatigue; Z51.81 Encounter for therapeutic drug level monitoring; Z79.1 Long term (current) use of non-steroidal anti-inflammatories (NSAID)
CPT/HCPCS: 36415; 80053; 80061; 80074; 85025; 85651; 86140

== ENCOUNTER → 2022-12-29 12:51 | Outpatient (CLI) | payer BC, SELFPAY ==
--- NOTE | 2022-12-29 12:51 | MM_ITS ---
PROCEDURE INFORMATION: Exam: MG Bilateral Screening 3D Mammography Exam date and time: 12/29/2022 12:51 PM Age: 47 years old Clinical indication: Screening. No family history of breast cancer. TECHNIQUE: Imaging protocol: Bilateral Screening tomosynthesis and 2D mammography including computer-aided detection (CAD) when performed. COMPARISON: 1. MG MM DIG SCREENING MAMM BI W/CAD 12/28/2021 7:59 AM 2. MG SCBI MM Dig screening mamm BI w/CAD 01/14/2019 4:08 PM 3. MG SCBI MM Dig screening mamm BI w/CAD 12/25/2017 4:35 PM 4. MG DMSB DIG MAMM-SCREEN JAME W/CAD 12/12/2016 10:06 AM FINDINGS: MAMMOGRAPHY: Breast composition: The breasts are heterogeneously dense, which may obscure small masses. Mass: Questionable oval 0.3 cm mass/circumscribed asymmetry in the inner left breast, posterior 3rd, CC view only which appears very superficial more likely in the skin on the tomosynthesis images. Architectural distortion: None. Calcifications: No suspicious calcifications. Asymmetric density: None. Skin thickening: None. Axillary adenopathy: None. IMPRESSION: Patient will be recalled for further evaluation of possible mass in the inner left breast which is very superficial and may be related to the skin. Advise clinical correlation to the Left breast and if a skin finding is present, an oval marker could be placed with repeat CCprojection. If no skin finding noted, advise left diagnostic spot compression in the CC projection and full field lateral as well as left sonography. ASSESSMENT: BI-RADS Category 0: Incomplete- Need Additional Imaging Evaluation and/or Prior Mammograms for Comparison
== END ==
PROVIDERS: PCP Internal Medicine Adolescent Medicine; Visit Provider Nurse Practitioner Obstetrics & Gynecology
DX: Z12.31 Encounter for screening mammogram for malignant neoplasm of breast (principal)
CPT/HCPCS: 77063; 77067

== ENCOUNTER → 2023-01-16 13:42 | Outpatient (CLI) | payer BC, SELFPAY ==
--- NOTE | 2023-01-16 13:42 | MM_ITS ---
PROCEDURE INFORMATION: Exam: US Left Breast, Complete MG Left Diagnostic Breast Tomosynthesis Exam date and time: 01/16/2023 1:42 PM Age: 47 years old Clinical indication: Patient recalled on the basis of a screening mammogram for further evaluation; Left breast; mass TECHNIQUE: Imaging protocol: Complete ultrasound of all four quadrants of the left breast and the retroareolar regions, including ultrasound of the axilla when performed. Left Diagnostic tomosynthesis and 2D mammography including computer-aided detection (CAD) when performed. Unilateral or bilateral exam. COMPARISON: 1. MG MM DIG SCREENING MAMM BI W/CAD 12/29/2022 12:51 PM 2. MG MM DIG SCREENING MAMM BI W/CAD 12/28/2021 7:59 AM FINDINGS: MAMMOGRAPHY: Digital diagnostic spot compression views of the left breast and 90 degree lateral view of the left breast demonstrate normal overlapping fibroglandular structures without persistent mass or asymmetry identified. ULTRASOUND: Sonographic images of the left breast including the retroareolar region, all 4 quadrants and the axilla do not demonstrate any solid or cystic masses. No architectural distortion or acoustical shadowing. No skin thickening or axillary adenopathy. IMPRESSION: No mammographic or sonographic evidence of malignancy. Annual bilateral mammographic screening is recommended unless otherwise clinically indicated. ASSESSMENT: BI-RADS Category 1: Negative
== END ==
LOC: RAD 13:42
PROVIDERS: PCP Internal Medicine Adolescent Medicine; Visit Provider Nurse Practitioner Obstetrics & Gynecology
DX: R92.8 Other abnormal and inconclusive findings on diagnostic imaging of breast (principal)
CPT/HCPCS: 76641; 77061; 77065; G0279

== ENCOUNTER → 2023-02-27 09:56 | Outpatient (POV) | payer BC, SELFPAY | PROVIDERS: Visit Provider Dermatology | DX: Z00.00 Encounter for general adult medical examination without abnormal findings (principal) ==

== ENCOUNTER 2023-11-28 11:04 | Outpatient (CLI) | payer BC, SELFPAY ==
[2023-11-28 11:12] LABS: Microscopic, Urine URINE MICROSCOPIC (MICROSCOPIC)
[2023-11-28 11:50] LABS: Basophils # 0.1 K/mm3 (0-0.2); Basophils % 0.9 % (0.1-2.0); Eosinophils # 0.1 K/mm3 (0.0-0.4); Eosinophils % 1.1 % (0.1-12.0); Hematocrit 46.3 % (37.0-47.0); Hemoglobin 15.6 g/dL (12.2-16.2); Lymphocytes # 2.1 K/mm3 (0.7-4.5); Lymphocytes % 21.1 % (10-50); Mean Corpuscular HGB Conc 33.7 g/dL (31.8-35.4); Mean Corpuscular Hemoglobin 30.5 pg (27.0-31.2); Mean Corpuscular Volume 90.7 fl (81-99); Mean Platelet Volume 8.9 fl (7.4-10.4); Monocytes # 0.7 K/mm3 (0.1-1.0); Neutrophils # 7.1 K/mm3 (1.8-7.8); Neutrophils % 69.8 % (37.0-80.0); Platelet Count 238 K/mm3 (142-424); Red Blood Count 5.11 M/mm3 (4.20-5.40); Red Cell Distribution Width 14.3 % (11.5-17.5); White Blood Count 10.1 K/mm3 (4.8-10.8)
[2023-11-28 11:56] LABS: Appearance,Urine CLEAR (Clear); Bilirubin,Urine Negative (Negative); Blood, Urine Negative (Negative); Color,Urine YELLOW (Yellow); Glucose,Urine (UA) 2+ (Negative); Ketones,Urine Negative (Negative); Leukocyte Esterase,Urine Negative (Negative); Nitrate,Urine Negative (Negative); Protein,Urine Negative (Negative); Specific Gravity, Urine <= 1.005 (1.005-1.030); Urobilinogen,Urine 0.2 EU/dl (0.2)
[2023-11-28 12:08] LABS: Creatinine,Urine Random 69 mg/dL (Not Estab.)
[2023-11-28 12:09] LABS: Microalbumin/Creatinine Ratio 8.9
[2023-11-28 12:14] LABS: Bacteria,Urine Trace /lpf; RBC,Urine Occasional #/hpf (0-3); Squamous Epithelial Cell,Urine Occasional #/hpf (0-5); WBC,Urine Occasional #/hpf (0-3)
[2023-11-28 12:18] LABS: Albumin Level 4.5 g/dl (3.5-5.0); Anion Gap 11.6 mEq/L (5-15); Blood Urea Nitrogen 12 mg/dl (7-17); Calcium 9.7 mg/dl (8.4-10.2); Carbon Dioxide 29 mmol/L (22.0-30.0); Chloride 97 mmol/L (98-107); Estimated Glomerular Filt Rate 89 ml/min (>60); GFR (African American) 107 ML/MIN (>60); Glucose 92 mg/dl (74-100); Phosphorous 4.4 mg/dl (2.5-4.5); Potassium 3.6 mmoL/L (3.5-5.1); Sodium 134 mmol/L (136-145)
[2023-11-28 12:26] LABS: Intact Parathyroid Hormone 64.8 pg/mL (7.5-53.5)
[2023-11-28 12:35] LABS: 25-OH Vitamin D, Total 53.1 ng/mL (30-100)
== END 2023-11-28 23:59 ==
LOC: LAB 11:05
PROVIDERS: PCP Internal Medicine Adolescent Medicine; Visit Provider Internal Medicine Nephrology
DX: R74.8 Abnormal levels of other serum enzymes (principal); R80.9 Proteinuria, unspecified; D89.9 Disorder involving the immune mechanism, unspecified; M06.00 Rheumatoid arthritis without rheumatoid factor, unspecified site; Z51.81 Encounter for therapeutic drug level monitoring; Z79.1 Long term (current) use of non-steroidal anti-inflammatories (NSAID); E66.9 Obesity, unspecified; Z68.30 Body mass index [BMI] 30.0-30.9, adult
CPT/HCPCS: 36415; 80069; 81001; 82043; 82306; 82570; 83970; 84155; 85025

== ENCOUNTER 2023-12-03 16:07 | Outpatient (POV) | payer BC, SELFPAY | END 2023-12-03 23:59 | disposition home or self-care (01) | LOC: SC 16:07 | PROVIDERS: Visit Provider Internal Medicine Nephrology | DX: Z00.00 Encounter for general adult medical examination without abnormal findings (principal) ==

== ENCOUNTER 2024-01-16 07:51 | Outpatient (CLI) | payer BC, SELFPAY | END 2024-01-16 23:59 | disposition home or self-care (01) | LOC: RAD 07:51 | PROVIDERS: PCP Internal Medicine Adolescent Medicine; Visit Provider Nurse Practitioner Obstetrics & Gynecology | DX: Z12.31 Encounter for screening mammogram for malignant neoplasm of breast (principal) | CPT/HCPCS: 77063; 77067 ==

== ENCOUNTER 2024-03-18 15:17 | Outpatient (CLI) | payer BC, SELFPAY ==
[2024-03-18 16:08] LABS: Basophils # 0.1 K/mm3 (0-0.2); Basophils % 0.7 % (0.1-2.0); Eosinophils # 0.1 K/mm3 (0.0-0.4); Hematocrit 38.8 % (37.0-47.0); Hemoglobin 12.5 g/dL (12.2-16.2); Lymphocytes # 0.9 K/mm3 (0.7-4.5); Lymphocytes % 10.2 % (10-50); Mean Corpuscular HGB Conc 32.2 g/dL (31.8-35.4); Mean Corpuscular Hemoglobin 27.1 pg (27.0-31.2); Mean Corpuscular Volume 84.4 fl (81-99); Mean Platelet Volume 8.7 fl (7.4-10.4); Monocytes # 0.6 K/mm3 (0.1-1.0); Monocytes % 6.2 % (1.7-9.3); Neutrophils # 7.5 K/mm3 (1.8-7.8); Neutrophils % 81.9 % (37.0-80.0); Platelet Count 325 K/mm3 (142-424); Red Cell Distribution Width 15.7 % (11.5-17.5); White Blood Count 9.2 K/mm3 (4.8-10.8)
[2024-03-18 16:53] LABS: Erythrocyte Sedimentation Rate 22 mm/hr (0-20)
[2024-03-18 17:57] LABS: Chloride 102 mmol/L (98-107); Potassium 4.5 mmoL/L (3.5-5.1); Sodium 135 mmol/L (136-145)
[2024-03-18 17:59] LABS: Alanine Aminotransferase 22 U/L (12-78); Alkaline Phosphatase 82 U/L (38-126); Aspartate Amino Transferase 28 U/L (14-36); Bilirubin,Total 0.4 mg/dl (0.2-1.3); Blood Urea Nitrogen 7 mg/dl (7-17); Estimated Glomerular Filt Rate 89 ml/min (>60); GFR (African American) 107 ML/MIN (>60)
[2024-03-18 18:00] LABS: Albumin Level 4.6 g/dl (3.5-5.0); Albumin/Globulin Ratio 1.6 (1.1-1.8); Anion Gap 11.5 mEq/L (5-15); Calcium 10.2 mg/dl (8.4-10.2); Carbon Dioxide 26 mmol/L (22.0-30.0); Globulin 2.8 g/dL (1.3-3.2); Glucose 98 mg/dl (74-100); Total Protein,Serum 7.4 g/dl (6.3-8.2)
[2024-03-18 18:05] LABS: C-Reactive Protein 5.8 mg/L (0-4)
[2024-03-20 13:02] LABS: HBsAg Screen Negative (Negative); HCV Ab Non Reactive (Non Reactive); Hep A Ab, IGM Negative (Negative); Hep B Core Ab, IgM Negative (Negative)
[2024-03-21 20:09] LABS: QuantiFERON-TB Gold Plus Negative (Negative)
== END 2024-03-18 23:59 | disposition home or self-care (01) ==
LOC: LAB 15:20
PROVIDERS: PCP Internal Medicine Adolescent Medicine; Visit Provider Internal Medicine
DX: M06.00 Rheumatoid arthritis without rheumatoid factor, unspecified site (principal); Z51.81 Encounter for therapeutic drug level monitoring; D84.821 Immunodeficiency due to drugs; Z79.899 Other long term (current) drug therapy; Z79.52 Long term (current) use of systemic steroids; R53.83 Other fatigue; D89.9 Disorder involving the immune mechanism, unspecified; Z79.1 Long term (current) use of non-steroidal anti-inflammatories (NSAID)
CPT/HCPCS: 36415; 80053; 80074; 85025; 85651; 86140; 86480

== ENCOUNTER 2024-03-21 16:57 | Emergency (ER) | payer BC, SELFPAY ==
[2024-03-21 17:05] VITALS: BP 151/82; PULSE 75; RESP 20; TEMP 36.6; O2SAT 98; BMI 28.1
--- NOTE | 2024-03-21 17:16 | ED_ITS ---
Discharge Plan Disposition Patient Disposition: Home, Self-Care Condition: Good Prescriptions Prescriptions: New amoxicillin-pot clavulanate 875-125 mg Tablet 1 tab PO Q12H Qty: 20 0RF No Action losartan 50 mg tablet 50 mg PO DAILY Qty: 30 bisoprolol-hydrochlorothiazide 10-6.25 mg tablet 1 tab PO DAILY Qty: 90 rosuvastatin 20 mg tablet 20 mg PO DAILY prednisone 5 mg tablet 5 mg PO DAILY cholecalciferol (vitamin D3) 125 mcg (5,000 unit) tablet 125 mcg PO DAILY lansoprazole 30 mg capsule,delayed release(DR/EC) 30 mg PO DAILY tramadol 50 mg tablet 50 mg PO BID leflunomide 20 mg tablet 20 mg PO DAILY Orencia ClickJect 125 mg/mL auto-injector 125 mg SQ WEEKLY dapagliflozin propanediol 10 MG tablet 10 mg PO DAILY Referrals Follow up/Referrals: Fabiano Knutson MD [Primary Care Provider] - See instructions Activity Restrictions/Add. Instructions Additional Instructions/Restrictions: Take tylenol or ibuprofen for pain or fever. Take the medications as directed. Follow up with your regular doctor. Follow up with your dentist as discussed. GO TO THE ER FOR ANY WORSENING SYMPTOMS Clinical Impressions Clinical Impression: Abscess, dental Instructions Patient Instructions: Tooth Abscess, DI for Tooth Abscess Discharge ED Provider: Haile Carreon [facility] General Stated complaint: dental pain Mode of Arrival: Ambulatory Source of Information: Patient Limitations: No Limitations Time Seen by Provider: 03/21/24 17:16 Description of Symptoms (Recalled from Triage Doc. by RN): PATIENT C/O PAIN TO LEFT JAW AND EAR AREA AND A KNOT ON LEFT JAW SINCE YESTERDAY HEENT Symptoms (Recalled from RN notes): Yes Resp Symptoms (Recalled from RN notes): No Skin Symptoms (Recalled from RN notes): No MS Symptoms (Recalled from RN notes): No Functional Status (Recalled from RN notes): WNL Related Data Home Medications Medication Instructions Recorded Confirmed lansoprazole 30 mg capsule,delayed 30 mg PO DAILY . 01/08/18 03/21/24 release tramadol 50 mg tablet 50 mg PO BID . 01/08/18 03/21/24 bisoprolol 10 1 tab PO DAILY . #90 tabs 05/01/19 02/05/24 mg-hydrochlorothiazide 6.25 mg tablet losartan 50 mg tablet 50 mg PO DAILY High blood pressure 05/01/19 03/21/24 #30 tabs leflunomide 20 mg tablet 20 mg PO DAILY . 12/10/19 02/05/24 dapagliflozin propanediol 10 mg 10 mg PO DAILY Diabetes 11/01/21 02/05/24 tablet cholecalciferol (vitamin D3) 125 125 mcg PO DAILY 01/18/22 03/21/24 mcg (5,000 unit) tablet prednisone 5 mg tablet 5 mg PO DAILY 01/18/22 03/21/24 rosuvastatin 20 mg tablet 20 mg PO DAILY 02/08/22 03/21/24 abatacept 125 mg/mL subcutaneous 125 mg SQ WEEKLY 02/05/24 02/05/24 auto-injector (Orencia ClickJect) Previous Rx's Medication Instructions Recorded amoxicillin 875 mg-potassium 1 tab PO Q12H #20 tabs 03/21/24 clavulanate 125 mg tablet Allergies Allergy/AdvReac Type Severity Reaction Status Date / Time Tetanus Vaccines and Toxoid Allergy Mild Verified 02/05/24 08:46 ACETAMINOPHEN Allergy Severe PT STATES Uncoded 02/05/24 08:46 TYLENOL MAKES HER PASS OUT. flu shot Allergy Mild Uncoded 02/05/24 08:46 pheregan AdvReac Severe Uncoded 02/05/24 08:46 Worker's Comp Is this a Worker's Comp case?: No [facility] Disclaimer: The information contained in this section may have been updated after the patient was seen, as this information can be updated by other users. Medical History (Updated 03/21/24 @ 17:41 by Haile Carreon APRN) Diabetes mellitus, type 2 Migraine Hyperlipidemia Hypertension delivery delivered Surgical History H/O laparoscopy H/O shoulder surgery Hx of knee surgery History of cholecystectomy Family History Other Cancer Diabetes Hyperlipidemia Hypertension Stroke Thyroid disorder Social History (Updated 02/05/24 @ 09:01 by Ruby Rankin) Smoking Status: Current every day smoker tobacco type: e-cigarettes alcohol intake: never substance use type: denies use current occupational status: employed Travel in the last 8 weeks: None household members: spouse housing: house current occupation: [employer] current occupational exposures/hazards: No caffeine: Yes ROS Obtained: Yes All systems reviewed & no additional complaints except as documented Constitutional Constitutional: Denies chills and Denies fever(s) Eyes Eyes: Denies eye discharge ENT Ears, Nose, Mouth, and Throat: Reports as per HPI, Denies dizziness, Denies otalgia and Denies sore throat Cardiovascular Cardiovascular: Denies chest pain Respiratory Respiratory: Denies shortness of breath, Denies chest congestion, Denies cough, Denies stridor and Denies wheezing Gastrointestinal Gastrointestingal: Denies nausea or vomiting Musculoskeletal Musculoskeletal: Reports system reviewed and no additional complaints, except as documented and Denies arthralgias Integumentary/Breasts Skin/Breast: Denies rash Neurologic Neurologic: Denies dizziness and Denies paresthesias Allergic/Immunologic Allergic/Immunologic: Denies wheezing Physical Exam General General appearance: alert and in no apparent distress Head Head exam: atraumatic, normocephalic and normal inspection Eye Eye exam: Present normal appearance, PERRL and EOMI ENT ENT exam: Present mucous membranes moist, TM's normal bilaterally and normal external ear exam Expanded ENT Exam Nose exam: Absent sinus tenderness Nasal speculum exam: Bilateral: normal Mouth exam: Present normal external inspection; Absent drooling Teeth exam: Present dental caries, fractured tooth # and dental tenderness # Neck Neck exam: Present normal inspection, full ROM and trachea midline; Absent meningismus or lymphadenopathy Chest Chest inspection: Present normal inspection and symmetric chest wall rise; Absent tenderness Respiratory Respiratory exam: Present normal lung sounds bilaterally; Absent respiratory distress Cardiovascular Cardiovascular exam: Present regular rate and normal rhythm; Absent JVD Abdominal Exam Abdominal exam: Present soft and normal bowel sounds; Absent distention, tenderness or guarding Extremities Exam Extremities exam: Present normal inspection, full ROM and normal capillary refill; Absent calf tenderness Back Exam Back exam: Present normal inspection; Absent tenderness Neurological Exam Neurological exam: Present alert and oriented X3 Psychiatric Psychiatric exam: Present normal affect and normal mood Skin Skin exam: Present warm, dry, intact and normal color Lymphatic Lymphatic Findings: no adenopathy Medical Decision Making Medical Records Medical records reviewed: No I reviewed the patient's medical records. Adarsh Inquiry Pt receiving controlled substance: No Vital Signs: 03/21/24 17:05 Temperature 97.9 F Temperature Source Oral Pulse Rate [Left Brachial] 75 Respiratory Rate 20 Blood Pressure [Left Arm] 151/82 H Blood Pressure Mean [Left Arm] 105 Blood Pressure Source [Left Arm] Automatic Cuff Blood Pressure Position [Left Arm] Sitting 02 Sat by Pulse Oximetry 98 Oxygen Delivery Method Room Air Orders (Tests/Meds): ED MEDICATIONS Generic Name Dose Route Start Last Admin Trade Name Freq PRN Reason Stop Dose Admin Ceftriaxone Sodium 1 gm 03/21/24 17:15 Ceftriaxone 1gm Vial IM 03/21/24 17:16 ONCE ONE Lidocaine HCl 0 ml 03/21/24 17:15 Lidocaine 1% 5ml Pf Vial IM 03/21/24 17:16 ONCE ONE
[2024-03-21] MEDS: cefTRIAXone 1GM VIAL 1 GM IM (17:20)
[2024-03-21] MEDS: LIDOCAINE 1% 5ML PF VIAL IM (17:20)
[2024-03-21 17:43] VITALS: BP 151/82; PULSE 75; RESP 20; TEMP 36.6; O2SAT 98
== END 2024-03-21 17:45 | disposition home or self-care (01) ==
PROVIDERS: Emergency Provider Nurse Practitioner Family; PCP Internal Medicine Adolescent Medicine
DX: K04.7 Periapical abscess without sinus (principal); R68.84 Jaw pain
CPT/HCPCS: 96372; 99204; 99212; G0463; J0696

== ENCOUNTER 2024-04-04 11:34 | Outpatient (CLI) | payer BC, SELFPAY ==
[2024-04-04] MEDS: LORATADINE 10MG TABLET 10 MG PO (11:45)
[2024-04-04] MEDS: 0.9 % SODIUM CHLORIDE 50 ML 100 ML IV (12:13)
[2024-04-04] MEDS: ABATACEPT IV (12:14)
[2024-04-04] MEDS: MALTOSE IV (12:14)
[2024-04-04] MEDS: SODIUM CHLORIDE 0.9% IV (12:14)
[2024-04-04 12:18] VITALS: BP 125/76; PULSE 58; RESP 18; TEMP 36.7; O2SAT 99
[2024-04-04 13:06] VITALS: BP 125/68; PULSE 54; RESP 18; O2SAT 99
== END 2024-04-04 13:06 | disposition home or self-care (01) ==
LOC: INF 11:35
PROVIDERS: PCP Internal Medicine Adolescent Medicine; Visit Provider Internal Medicine
DX: M06.00 Rheumatoid arthritis without rheumatoid factor, unspecified site (principal); Z79.69 Long term (current) use of other immunomodulators and immunosuppressants
CPT/HCPCS: 96365; J0129

== ENCOUNTER 2024-04-18 12:20 | Outpatient (CLI) | payer BC, SELFPAY ==
[2024-04-18 12:57] VITALS: BP 122/71; PULSE 52; RESP 18; O2SAT 95
[2024-04-18 13:35] VITALS: BP 134/74; PULSE 78; RESP 18; O2SAT 96
== END 2024-04-18 13:40 | disposition home or self-care (01) ==
LOC: INF 12:20
PROVIDERS: PCP Internal Medicine Adolescent Medicine; Visit Provider Internal Medicine
DX: Z51.12 Encounter for antineoplastic immunotherapy (principal); M06.00 Rheumatoid arthritis without rheumatoid factor, unspecified site; Z79.69 Long term (current) use of other immunomodulators and immunosuppressants
CPT/HCPCS: 96365; J0129

== ENCOUNTER 2024-05-02 12:04 | Outpatient (CLI) | payer BC, SELFPAY ==
[2024-05-02 12:07] VITALS: BMI 33.3
[2024-05-02 12:36] LABS: Chloride 108 mmol/L (98-107); Sodium 139 mmol/L (136-145)
[2024-05-02 12:38] LABS: Alanine Aminotransferase 22 U/L (12-78); Alkaline Phosphatase 67 U/L (38-126); Aspartate Amino Transferase 23 U/L (14-36); Bilirubin,Total 0.4 mg/dl (0.2-1.3); Blood Urea Nitrogen 13 mg/dl (7-17); Creatinine Clearance Estimated 110 mL/min (50-200); Estimated Glomerular Filt Rate 76 ml/min (>60); GFR (African American) 92 ML/MIN (>60)
[2024-05-02 12:39] LABS: Albumin/Globulin Ratio 1.6 (1.1-1.8); Carbon Dioxide 28 mmol/L (22.0-30.0); Globulin 2.5 g/dL (1.3-3.2); Glucose 98 mg/dl (74-100); Magnesium 1.7 mg/dl (1.6-2.3); Total Protein,Serum 6.5 g/dl (6.3-8.2)
[2024-05-02 12:40] VITALS: BP 107/50; PULSE 51; RESP 18; O2SAT 97
[2024-05-02 13:28] VITALS: BP 110/59; PULSE 51; RESP 18; O2SAT 97
[2024-05-02 13:49] LABS: Free Thyroxine Index 2.2 ug/dL (5.93-13.13); T4 (Thyroxine) 7.1 ug/dl (5.53-11.0); Triiodothryronine (T3) Uptake 31 % (23.5-40.5)
[2024-05-02 14:03] LABS: Thyroid Stimulating Hormone 1.56 uIU/mL (0.465-4.68)
[2024-05-02 17:18] LABS: Hemoglobin A1C 5.8 % (4.0-6.0)
== END 2024-05-02 13:28 | disposition home or self-care (01) ==
LOC: INF 12:04
PROVIDERS: PCP Internal Medicine Adolescent Medicine; Visit Provider Internal Medicine
DX: Z51.12 Encounter for antineoplastic immunotherapy (principal); M06.00 Rheumatoid arthritis without rheumatoid factor, unspecified site; Z79.69 Long term (current) use of other immunomodulators and immunosuppressants; E11.9 Type 2 diabetes mellitus without complications; M79.10 Myalgia, unspecified site
CPT/HCPCS: 80053; 83036; 83735; 84436; 84443; 84479; 96365; J0129

== ENCOUNTER 2024-06-17 11:26 | Day surgery (SDC) | payer BC, SELFPAY ==
[2024-06-13 13:44] VITALS: BMI 28.1
[2024-06-17 11:48] VITALS: BP 123/78; PULSE 66; RESP 18; TEMP 36.2; O2SAT 99
--- NOTE | 2024-06-17 11:51 | P.PCN_ITS ---
Procedure: Date: 06/17/24 Patient Date of :: 1975 Procedure Performed:: Colonoscopy Indications:: History of colon polyps Note: The patient underwent colonoscopy in October 2021 for evaluation regardin g positive Cologuard study. An adenoma of the right colon was excised. Hemorrhoids noted. The procedure was complicated by fairly profound tortuosity and spasticity. A follow-up barium enema revealed no significant abnormality. Performing Provider:: Josh Rollins MD Referring Provider:: . Sedation:: Monitored anesthesia care Procedure:: After informed consent was obtained the patient was taken to the endoscopy suite. Sedation ensued after the patient was transferred to the left lateral decubitus position. Pulse, blood pressure, and oxygen saturation were monitored throughout the procedure. Digital rectal exam revealed no significant abnormality. The colonoscope was placed in position. The entire colon was evaluated. The colonoscope was carefully removed and the patient was transf erred to recovery in stable condition. Please see findings and specimens below for detail. Findings:: Bowel preparation moderate Profound tortuosity Profound spasticity Scattered sigmoid diverticulosis Specimens:: none Recommendations:: Repeat colonoscopy in 2-3 years secondary to persistent profound tortuosity and spasticity and history of complex polyps. Consider next colonoscopy to be performed by the gastroenterology service secondary to profound spasticity/tortuosity. Complications:: No immediate Estimated blood obtained (mL): 0 Colonoscopy Component Colonoscopy Component Was a colonoscopy performed during today's procedure?: Yes Recommended follow up colonoscopy of at least 10 years?: No If no, follow up colonoscopy recommended in ___ years?: (See above) Reason for not recommending >/= 10 yr follow-up interval?: (See above)
[2024-06-17] MEDS: LACTATED RINGERS 1000ML 1,000 ML 25 ML IV (11:54)
--- NOTE | 2024-06-17 11:58 | P.PNANES_ITS ---
[facility] Disclaimer: The information contained in this section may have been updated after the patient was seen, as this information can be updated by other users. Medical History Rheumatoid arthritis Diabetes mellitus, type 2 Migraine Hyperlipidemia Hypertension delivery delivered Surgical History History of delivery H/O laparoscopy H/O shoulder surgery Hx of knee surgery History of cholecystectomy Family History Other Cancer Diabetes Hyperlipidemia Hypertension Stroke Thyroid disorder Social History (Updated 06/17/24 @ 11:53 by Anne Marie Núñez RN) Smoking Status: Current every day smoker tobacco type: e-cigarettes alcohol intake: never substance use type: denies use current occupational status: employed Travel in the last 8 weeks: None household members: spouse housing: house current occupation: [employer] current occupational exposures/hazards: No caffeine: Yes [facility] Anesthesia Checklist Patient Identification Patient Identification: Arm Band Structural Data Admitted From: Home Planned Operative Procedure/s: Colonoscopy Consent for Planned Operative Procedure(s) Verified: Yes Verified Documents: Surgical Consent and History and Physical NPO Status Verified Time NPO: 00:00 Additional verifications Anesthesia Reactions: No Airway Assessment Mallampati Score:: Class II C-Spine Mobility Assessed: Yes TMJ Mobility Assessed: Yes Dentition: Good Dentition Neurological Assessment Level of Consciousness: Awake, Alert and Appropriate Anesthesia Plan Anesthesia Risk discussed: Yes Anesthesia Plan: Verified ASA Class: II Anesthesia Type: MAC
[2024-06-17 12:01] VITALS: O2SAT 98
[2024-06-17 12:05] LABS: POC Glucose,Bedside 85 (70-110)
[2024-06-17 12:38] VITALS: BP 104/79; PULSE 60; RESP 16; TEMP 36.6; O2SAT 97
[2024-06-17 12:48] VITALS: BP 107/56; PULSE 58; RESP 16; O2SAT 98
[2024-06-17 12:58] VITALS: BP 116/65; PULSE 54; RESP 16; O2SAT 97
[2024-06-17 13:08] VITALS: BP 126/70; PULSE 56; RESP 18; O2SAT 98
== END 2024-06-17 13:11 | disposition home or self-care (01) ==
PROVIDERS: PCP Internal Medicine Adolescent Medicine; Visit Provider Surgery
PROC: 0DJD8ZZ Inspection of Lower Intestinal Tract, Via Natural or Artificial Opening Endoscopic (ICD-10-PCS; CPT 45378; principal; 2024-06-17 12:30)
DX: Z86.010 Personal history of colon polyps (principal); K64.9 Unspecified hemorrhoids; K57.30 Diverticulosis of large intestine without perforation or abscess without bleeding
CPT/HCPCS: 45378; 82962; J2704; J7120

== ENCOUNTER 2024-12-01 06:43 | Outpatient (CLI) | payer BC, SELFPAY ==
--- NOTE | 2024-12-01 06:53 | CT_ITS ---
FINAL REPORT TECHNIQUE: Thin section axial images were obtained from the lung apices to the upper abdomen by computed tomography. Reformatted images were obtained and reviewed. This study was performed with techniques to keep radiation doses al low as reasonably achievable (ALARA). Individualized dose reduction techniques using automated exposure control or adjustment of mA and/or kV according to the patient's size were employed. CLINICAL HISTORY: PERSONAL HISTORY OF NICTOINE DEPENDENCE CURRENT SMOKER 1PPD X36 YEARS COMPARISON: None FINDINGS: CHEST CT LOW DOSE 49-year-old female, current smoker, [id number]-[id number] history. CTDI vol (mGy): 2.90 DLP (mGy-cm): 89.6 There is no axillary adenopathy. There is no mediastinal or hilar mass or adenopathy. The heart is normal in size. There is no pericardial or pleural effusion. Lung window images demonstrate a 3 mm nodule in the peripheral right upper lobe, best seen on image #24 of series 4. Several calcified granulomas are present in the left lower lobe. Limited images of the upper abdomen demonstrate a prior cholecystectomy. IMPRESSION: Lung-RADS category 2. Recommend 12 month follow up low dose chest CT. Reviewed, Interpreted and Dictated by Leon Mckeon MD Transcribed by Gloria Berkowitz Authenticated and [facility]
== END 2024-12-01 23:59 | disposition home or self-care (01) ==
LOC: RAD 06:45
PROVIDERS: PCP Internal Medicine Adolescent Medicine; Visit Provider Internal Medicine Adolescent Medicine
DX: Z87.891 Personal history of nicotine dependence (principal)
CPT/HCPCS: 71271

== ENCOUNTER 2025-02-20 14:43 | Outpatient (CLI) | payer BC, SELFPAY ==
--- NOTE | 2025-02-20 15:00 | MM_ITS ---
PROCEDURE INFORMATION: Exam: MG Bilateral Screening 3D Mammography Exam date and time: 02/20/2025 3:02 PM Age: 49 years old Clinical indication: Screening examination TECHNIQUE: Imaging protocol: Bilateral Screening tomosynthesis and 2D mammography including computer-aided detection (CAD) when performed. COMPARISON: 1. MG MM DIG SCREENING MAMM BI W/CAD 01/16/2024 7:50 AM 2. MG MM DIG MAMM DX UNILAT LT CAD 01/16/2023 1:42 PM FINDINGS: MAMMOGRAPHY: Breast composition: There are scattered areas of fibroglandular density. Mass: None. Architectural distortion: None. Calcifications: No suspicious calcifications. Asymmetric density: None. Skin thickening: None. Axillary adenopathy: None. IMPRESSION: No mammographic evidence of malignancy. Annual screening is recommended unless otherwise clinically indicated. ASSESSMENT: BI-RADS Category 1: Negative.
[2025-02-20 15:27] LABS: Alanine Aminotransferase 30 U/L (12-78); Albumin Level 3.7 g/dl (3.5-5.0); Albumin/Globulin Ratio 1.8 (1.1-1.8); Alkaline Phosphatase 69 U/L (38-126); Aspartate Amino Transferase 28 U/L (14-36); Bilirubin,Total 0.5 mg/dl (0.2-1.3); Blood Urea Nitrogen 14 mg/dl (7-17); Calcium 9.2 mg/dl (8.4-10.2); Carbon Dioxide 28 mmol/L (22.0-30.0); Chloride 105 mmol/L (98-107); Estimated Glomerular Filt Rate 105 ml/min (>60); GFR (African American) 128 ML/MIN (>60); Globulin 2.1 g/dL (1.3-3.2); Glucose 81 mg/dl (74-100); Sodium 135 mmol/L (136-145); Total Protein,Serum 5.8 g/dl (6.3-8.2)
[2025-02-20 15:30] LABS: Erythrocyte Sedimentation Rate 15 mm/hr (0-30)
[2025-02-20 15:32] LABS: C-Reactive Protein 3.4 mg/L (0-4)
== END 2025-02-20 23:59 | disposition home or self-care (01) ==
PROVIDERS: Internal Medicine; PCP Internal Medicine Adolescent Medicine; Visit Provider Nurse Practitioner Obstetrics & Gynecology
DX: Z12.31 Encounter for screening mammogram for malignant neoplasm of breast (principal); R92.323 Mammographic fibroglandular density, bilateral breasts; M06.00 Rheumatoid arthritis without rheumatoid factor, unspecified site
CPT/HCPCS: 36415; 77063; 77067; 80053; 85651; 86140

== ENCOUNTER 2025-02-27 16:02 | Outpatient (CLI) | payer BC, SELFPAY ==
--- OUTSIDE RECORDS SUMMARY | 2025-02-27 16:04 | XMS_ITS | Clinical Summary ---
Author Organization [facility] Address [address] [id number] Care Team Providers Care Web Application Dev Specialist Name Role Phone Fabiano Knutson MD Primary Care Provider [phone] Allergies Active Allergy Reactions Criticality Noted Date Comments Acetaminophen Unknown - Patient st ates they do not know rxn details Low 11/30/2023 Latex Unknown - Patient st ates they do not know rxn details Low 11/30/2023 Phenothiazines Unknown - Patient st ates they do not know rxn details Low 11/30/2023 Medications lansoprazole (Prevacid) [address] capsule Take 1 capsule (30 mg) by mouth 1 (one) time each day before breakfast. Do not crush or chew. Active bisoprolol (Zebeta) 10 MG tablet Take 1 tablet (10 mg) by mouth 1 (one) time each day. Active cholecalciferol (Vitamin D-3) 5,000 Units tablet Take 1 tablet (5,000 Units) by mouth 1 (one) time each day. Active rosuvastatin (Crestor) 20 MG tablet Take 1 tablet (20 mg) by mouth every night. Active predniSONE (Deltasone) 5 MG tablet Take 1 tablet (5 mg) by mouth 1 (one) time each day. Active leflunomide (Arava) 20 MG tablet Take 1 tablet (20 mg) by mouth 1 (one) time each day. Active Orencia ClickJect 125 MG/ML solution auto-injector Inject 1 mL under the skin once a week. 4 Active bisoprolol-hydr oCHLOROthiazide (Ziac) 10-6.25 MG tablet 4 Active clobetasol (Temovate) 0.05 % cream APPLY TOPICALLY TO THE AFFECTED AREA(S) TWICE DAILY FOR a few WEEKS DIRECTED -- FOR EXTERNAL USE ONLY-- 3 Active Farxiga 10 MG tablet 4 Active losartan (Cozaar) 50 MG tablet 4 Active traMADol (Ultram) 50 MG tablet TAKE 1 TO 2 TABLET(S) BY MOUTH THREE TIMES DAILY NEEDED FOR PAIN MAY CAUSE DROWSINESS 4 Active Family History Medical History Relation Name Comments Arthritis Father Hyperlipidemia Father Hypertension Father Stroke Father Diabetes Mother Fibromyalgia Mother Relation Name Status Comments Father Mother Social History Tobacco Use Types Packs/Day Years Used Date Smoking Tobacco: Former Cigarettes Q uit: 10/15/2023 Smokeless Tobacco: Never Alcohol Use Standard Drinks/Week Comments Yes 0 (1 standard drink = 0.6 oz pur e alcohol) occasionally Comments No Sex and Gender Information Value Date Recorded Sex Assigned at Not on file Legal Sex Female 6:08 PM EDT Gender Identity Not on file Sexual Orientation Not on file Last Filed Vital Signs Vital Sign Reading Time Taken Comments Blood Pressure 139/77 12/03/2023 2:18 PM EDT Pulse 65 12/03/2023 2:18 PM EDT Temperature - - Respiratory Rate 16 12/03/2023 2:18 PM EDT Oxygen Saturation 99% 12/03/2023 2:18 PM EDT Inhaled Oxygen Concentration - - Weight 84.1 kg (185 lb 6.4 oz) 12/03/2023 2:18 P M EDT Height 170.2 cm (5' 7 ) 12/03/2023 2:18 PM EDT Body Mass Index 29.04 12/03/2023 2:18 PM EDT Plan of Treatment Health Maintenance Due Date Last Done Comments [facility]-Depression Screening 1975 [facility]-/Child/Adol SDOH Screenings 1975 [facility]- SDOH Screenings 1991 [facility]-Adult SDOH Screenings 1991 [facility]-DTaP,Tdap,and Td Vaccine s (1 - Tdap) 1992 [facility]-Hepatitis B Vaccines (1 of 3 - 19+ 3-dose series) 1992 [facility]-Pap Smear 1994 [facility]-Cervical Cancer Screening 2003 [facility]-HPV/Cotest 2003 CT Colonography 2018 Colonoscopy 2018 FIT-DNA 2018 FIT 2018 FOBT 2018 Sigmoidoscopy 2018 [facility]-Colorectal Cancer Screening 2018 [facility]-Pneumococcal Vaccine: 50 + Years (1 of 1 - PCV) 2023 [facility]-Zoster Vaccines (1 of 2) 2023 [id number] Vaccine (3 - 2023- season) 2024 06/29/2021, 06/01/2021 [facility]-Influenza Vaccine ([place] n Ended) 2025 HPV Vaccines Aged Out No longer eligi ble based on patient's age to complete this topic [facility]-HIB Vaccines Aged Out No longer e ligible based on patient's age to complete this topic [facility]-Hepatitis A Vaccines Aged Out No longer eligible based on patient's age to complete this topic [facility]-IPV Vaccines Aged Out No longer e ligible based on patient's age to complete this topic [facility]-Rotavirus Vaccines Aged Out No lo nger eligible based on patient's age to complete this topic Insurance PAYAL Care Teams Web Application Dev Specialist Relationship Specialty Start Date End Date Fabiano Knutson MD [address] [place] [address] PCP - General Internal Medicine 12/03/23
[2025-02-27 17:01] LABS: Basophils # 0.1 K/mm3 (0-0.2); Basophils % 0.6 % (0.1-2.0); Eosinophils # 0.1 Kmm3 (0.0-0.4); Eosinophils % 1.3 % (0.1-12.0); Hematocrit 48.6 % (37.0-47.0); Hemoglobin 15.9 g/dL (12.2-16.2); Immature Granulocytes # 0.03 10^3uL; Immature Granulocytes % 0.3 %; Lymphocytes # 1.6 K/mm3 (0.7-4.5); Lymphocytes % 18.5 % (10-50); Mean Corpuscular HGB Conc 32.7 g/dL (31.8-35.4); Mean Corpuscular Hemoglobin 29.6 pg (27.0-31.2); Mean Corpuscular Volume 90.5 fl (81-99); Monocytes # 0.8 K/mm3 (0.1-1.0); Monocytes % 8.9 % (1.7-9.3); Neutrophils # 6.1 K/mm3 (1.8-7.8); Neutrophils % 70.4 % (37.0-80.0); Nucleated Red Blood Cells # 0 10^3/uL; Nucleated Red Blood Cells % 0 %; Platelet Count 182 K/mm3 (142-424); Red Blood Count 5.37 M/mm3 (4.20-5.40); Red Cell Distribution Width 13.1 % (11.5-17.5); White Blood Count 8.6 K/mm3 (4.8-10.8)
== END 2025-02-27 23:59 | disposition home or self-care (01) ==
LOC: LAB 16:03
PROVIDERS: PCP Internal Medicine Adolescent Medicine; Visit Provider Internal Medicine
DX: M06.00 Rheumatoid arthritis without rheumatoid factor, unspecified site (principal)
CPT/HCPCS: 85025